=== PATIENT | male | born 1950 | race Caucasian/White ===

== ENCOUNTER 2018-06-26 10:39 | Day surgery (SDC) | payer MEDICARE, OTHER ==
[2018-06-22 13:05] VITALS: BMI 22.0
[2018-06-26 12:13] VITALS: TEMP 97.4
[2018-06-26] MEDS: LACTATED RINGERS 1,000 ML IV SCH ×2 (12:25→12:37)
[2018-06-26] MEDS ORDERED: LIDOCAINE 1% INJ 10MG/ML (20 ML MDV) ONE (12:40)
[2018-06-26] MEDS ORDERED: PROPOFOL 10 MG/ML 20 ML VIAL IV ONE (12:40)
--- NOTE | 2018-06-26 13:18 | P.PCN ---
Date of Procedure: 06/26/18 Procedure(s) Performed: Procedure: Total colonoscopy. Preoperative diagnosis: Rectal bleeding and history of polyps. Postoperative diagnosis: 1. Proctitis. 2. Diverticulosis. 3. Poor preparation with no obvious polyps seen. Preparation: HalfLytely prep. Sedation: Was provided by anesthesia. Brief clinical history: The patient is 68-year-old male who is scheduled for this evaluation because of history of polyps and intermittent rectal bleeding. The patient has history of prostate cancer treated in 2014. Procedure: With the patient on his left lateral decubitus position and after informed consent and adequate sedation, the perianal area was inspected and it did not show any fissures or fistulas. There were no masses felt on digital rectal examination. The Olympus CFH 190L video colonoscope was then inserted in the rectum in the usual fashion and advanced to the cecum. Unfortunately, the preparation was extremely poor and it did not improve as I was advancing the endoscope. I cleansed the bowel upon withdrawing the endoscope. No obvious polyps or tumors were seen. Multiple diverticular orifices were seen scattered mostly on the left side with no evidence of acute diverticulitis or strictures. There was evidence of proctitis first noted upon inserting the endoscope and was more evident with bleeding upon withdrawing the endoscope. There was bleeding telangiectatic vessels and areas of submucosal hemorrhoids in the distal rectum raising the possibility of prior radiation. I did not use argon plasma coagulation at this time because of the extremely poor preparation. The patient tolerated the procedure well. Plan: I summarized the findings to the patient. Discussed dietary measures. I would consider a repeat examination after more thorough preparation for therapeutic treatment if the bleeding continues or recurs. I will keep you updated on his progress.
[2018-06-26 13:36] VITALS: BP 164/82; PULSE 75; RESP 18
== END 2018-06-26 14:29 | disposition home or self-care (01) ==
LOC: ORWHC2ENDO 10:39
DX: K62.89 Other specified diseases of anus and rectum (principal); K57.30 Diverticulosis of large intestine without perforation or abscess without bleeding; Z86.010 Personal history of colon polyps; Z85.46 Personal history of malignant neoplasm of prostate; N40.0 Benign prostatic hyperplasia without lower urinary tract symptoms; K21.9 Gastro-esophageal reflux disease without esophagitis; I10 Essential (primary) hypertension; E78.5 Hyperlipidemia, unspecified; G47.33 Obstructive sleep apnea (adult) (pediatric); E07.9 Disorder of thyroid, unspecified; J44.9 Chronic obstructive pulmonary disease, unspecified; Z79.890 Hormone replacement therapy; Z79.899 Other long term (current) drug therapy
CPT/HCPCS: 45378; J2001; J2704

== ENCOUNTER → 2020-08-26 | Outpatient (CLI) | payer MEDICARE, OTHER ==
[2020-08-26 10:14] LABS: HCT 38.5 % (39.0-53.0); HGB 13.2 gm/dL (13.0-17.5); MCH 32.3 pg (25.0-35.0); MCHC 34.3 g/dL (31.0-37.0); MCV 94.2 fL (80.0-100.0); Mean Platelet Volume 7.5; Platelet Count 191 k/uL (150-450); RBC 4.09 m/uL (4.30-5.90); RDW 13.5 % (11.5-15.5); WBC 6.5 k/uL (3.8-10.6)
[2020-08-26 10:22] LABS: African American GFR (CKD) >90 (>60 ml/min/1.73 sqM); Anion Gap 5 mmol/L; Blood Urea Nitrogen 22 mg/dL (9-20); Carbon Dioxide 30 mmol/L (22-30); Chloride 103 mmol/L (98-107); Non-African American GFR(CKD) >90 (>60 ml/min/1.73 sqM); Potassium 4.6 mmol/L (3.5-5.1); Sodium 138 mmol/L (137-145)
== END | disposition home or self-care (01) ==
LOC: LABWHC1 09:14
PROVIDERS: ATTEND Internal Medicine Interventional Cardiology
DX: Z01.818 Encounter for other preprocedural examination (principal); R94.39 Abnormal result of other cardiovascular function study
CPT/HCPCS: 36415; 80051; 82565; 84520; 85027

== ENCOUNTER → 2020-09-18 | Day surgery (SDC) | payer MEDICARE, OTHER ==
[2020-09-04 15:11] VITALS: BMI 21.4
[~2020-09-18] MED LIST: ALPRAZolam 0.25 MG TAB PO PRN; ALPRAZolam 0.5 MG TAB PO PRN; ASPIRIN 325 MG TAB PO STA; ATORVASTATIN 80 MG TAB PO STA; HEPARIN SODIUM 1,000 UN/ML (10ML VL) ONE; HEPARIN SODIUM,PORCINE 10,000 UNIT in SODIUM CHLORIDE 0.9% 1,000 ML IRRIGATION PRN; HEPARIN SODIUM,PORCINE 2,500 UNIT in SODIUM CHLORIDE 0.9% 250 ML IRRIGATION PRN; IOPAMIDOL-370 125ML BTL INJ ONE; LIDOCAINE 1% INJ 10MG/ML (20 ML MDV) ONE; LIDOCAINE 1% INJ 10MG/ML (20 ML MDV) SQ ONE; MIDAZOLAM 2 MG/2 ML VIAL IV ONE; NITROGLYCERIN SL TABS 0.4 MG TAB SUBLINGUAL PRN; RX INFO: IV CONTRAST WAS GIVEN 1 EACH MISC MISCELLANE PRN; SODIUM CHLORIDE 0.9% 1,000 ML IV SCH; SODIUM CHLORIDE 0.9% 1,000 ML in EMPTY BAG 1 BAG IV ONE; VERAPAMIL 2.5 MG/ML 2 ML AMP ONE; VERAPAMIL SYRINGE (5 MG/10 ML) INTRAARTER ONE
[2020-09-18 07:07] VITALS: RESP 18; TEMP 98.9
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
[2020-09-18 12:26] VITALS: BP 121/67; PULSE 73
== END ==
LOC: CATHCVL 06:24
PROVIDERS: ATTEND Internal Medicine Interventional Cardiology
DX: I25.10 Atherosclerotic heart disease of native coronary artery without angina pectoris (principal); I10 Essential (primary) hypertension; I47.2 Ventricular tachycardia; E78.00 Pure hypercholesterolemia, unspecified; R55 Syncope and collapse; Z82.49 Family history of ischemic heart disease and other diseases of the circulatory system; Z72.0 Tobacco use; R94.39 Abnormal result of other cardiovascular function study; Z79.82 Long term (current) use of aspirin; Z79.890 Hormone replacement therapy; Z79.899 Other long term (current) drug therapy
CPT/HCPCS: 93458; C1769; C1894; J2250; J2001; J1644; Q9967

== ENCOUNTER 2022-02-22 11:51 | Emergency (ER) | payer MEDICARE, OTHER ==
[2022-02-22 12:00] VITALS: RESP 18
[2022-02-22 12:04] VITALS: TEMP 97.5
[2022-02-22 12:07] LABS: Glucose,Whole Blood 94 mg/dL (70-110)
--- NOTE | 2022-02-22 12:52 | XR ---
EXAMINATION TYPE: XR chest 2V DATE OF EXAM: 02/22/2022 COMPARISON: NONE HISTORY: Shortness of breath TECHNIQUE: Frontal and lateral views of the chest are obtained. FINDINGS: Scattered senescent parenchymal changes noted. Hyperinflation compatible with COPD. No evidence for infiltrate. No evidence for atelectasis. Heart size is stable. Mediastinal structures are stable and grossly unremarkable. No evidence for hilar prominence. Degenerative changes dorsal spine. IMPRESSION: 1. No evidence for acute pulmonary disease.
[2022-02-22 13:02] LABS: Basophils % (A) 1 %; Eosinophils # (A) 0.1 k/uL (0-0.7); Eosinophils % (A) 2 %; HCT 40.9 % (39.0-53.0); HGB 13.5 gm/dL (13.0-17.5); Lymphocytes # (A) 0.7 k/uL (1.0-4.8); Lymphocytes % (A) 9 %; MCH 32.2 pg (25.0-35.0); MCV 97.5 fL (80.0-100.0); Mean Platelet Volume 9.1; Monocytes # (A) 0.3 k/uL (0-1.0); Monocytes % (A) 4 %; Neutrophils # (A) 6.5 k/uL (1.3-7.7); Neutrophils % (A) 84 %; Platelet Count 205 k/uL (150-450); RBC 4.19 m/uL (4.30-5.90); RDW 14.9 % (11.5-15.5); WBC 7.7 k/uL (3.8-10.6)
--- NOTE | 2022-02-22 13:11 | ED ---
General Adult HPI - General Chief complaint: Weakness Stated complaint: syncope, weakness Time Seen by Provider: 02/22/22 12:11 Source: patient, EMS, RN notes reviewed, old records reviewed Mode of arrival: EMS Limitations: no limitations - History of Present Illness Initial comments: 72-year-old male presenting with a slip and fall. Patient states she was walking out to his car, he slipped on a piece of plastic and fell without injury. No head or neck trauma. Denies pain complaints from the fall but states afterwards he felt somewhat dizzy. He denies any preceding dizziness. No palpitations, no chest pain. He has had syncopal episode in the past. Denies focal numbness or weakness. Denies any pain complaints from the fall. - Related Data Home Medications Medication Instructions Recorded Confirmed Omeprazole [PriLOSEC] 40 mg PO BID 06/22/18 09/18/20 Simvastatin [Zocor] 40 mg PO HS 06/22/18 09/18/20 Tamsulosin HCl [Flomax] 0.4 mg PO DAILY 06/22/18 09/18/20 Umeclidinium Brm/Vilanterol Tr 1 puff INHALATION DAILY 06/22/18 09/18/20 [Anoro Ellipta 62.5-25 Mcg INH] Aspirin [Adult Low Dose Aspirin EC] 81 mg PO DAILY 09/04/20 09/18/20 Calcium Carbonate/Vitamin D3 1 each PO DAILY 09/04/20 09/18/20 [Calcium 600 mg-Vit D3 5 mcg (200 unit)] Desvenlafaxine Succinate [Pristiq] 100 mg PO DAILY 09/04/20 09/18/20 Levothyroxine Sodium [Synthroid] 112 mcg PO DAILY 09/04/20 09/18/20 Lisinopril-Hctz 20-12.5 mg 1 tab PO DAILY 09/04/20 09/18/20 [Zestoretic 20-12.5] Metoprolol Succinate (ER) [Toprol 25 mg PO DAILY 09/04/20 09/18/20 XL] Glycopyrrolate/Formoterol Fum 2 puff INHALATION BID 09/16/20 09/18/20 [Bevespi Aerosphere Inhaler] Naproxen [Naprosyn] 500 mg PO Q12HR PRN 09/18/20 09/18/20 Allergies Allergy/AdvReac Type Severity Reaction Status Date / Time No Known Allergies Allergy Verified 02/22/22 12:00 Review of Systems ROS Statement: Those systems with pertinent positive or pertinent negative responses have been documented in the HPI. ROS Other: All systems not noted in ROS Statement are negative. Past Medical History Past Medical History: Cancer, COPD, GERD/Reflux, Hyperlipidemia, Hypertension, Prostate Disorder, Thyroid Disorder Additional Past Medical History / Comment(s): PROSTATE CA 2015 WITH SURGERY & RADIATION TX., STATES UMBILICAL HERNIA, SEE CARDIOLOGY H & P. History of Any Multi-Drug Resistant Organisms: None Reported Past Surgical History: Hernia Repair, Prostate Surgery Additional Past Surgical History / Comment(s): JORGE CATARACTS., INGUINAL HERNIA, RIGHT HIP FX REPAIR WITH HARDWARE. Past Anesthesia/Blood Transfusion Reactions: No Reported Reaction Past Psychological History: Anxiety, Depression Smoking Status: Current every day smoker Past Alcohol Use History: None Reported Past Drug Use History: None Reported - Past Family History Father Family Medical History: Cancer Sister(s) Family Medical History: Congestive Heart Failure (CHF) Additional Family Medical History / Comment(s): UNSURE, POSSIBLE CANCER Mother Family Medical History: Congestive Heart Failure (CHF) General Exam Limitations: no limitations General appearance: alert, in no apparent distress Head exam: Present: atraumatic, normocephalic Eye exam: Present: normal appearance, PERRL ENT exam: Present: normal exam Neck exam: Present: normal inspection. Absent: tenderness, meningismus Respiratory exam: Present: normal lung sounds bilaterally. Absent: respiratory distress, wheezes Cardiovascular Exam: Present: regular rate, normal rhythm GI/Abdominal exam: Present: soft. Absent: distended, tenderness, guarding Extremities exam: Present: pedal edema Neurological exam: Present: alert, oriented X3, CN II-XII intact. Absent: motor sensory deficit Psychiatric exam: Present: normal affect, normal mood Skin exam: Present: warm, dry, intact. Absent: cyanosis, diaphoretic Course Vital Signs 02/22/22 02/22/22 11:53 12:03 Temperature 97.5 F L Pulse Rate 69 64 Respiratory 18 18 Rate Blood Pressure 129/72 121/74 O2 Sat by Pulse 95 95 Oximetry - Reevaluation(s) Reevaluation #1: 02/22/22 14:12 I did reevaluate the patient, resting comfortably with no further complaints, dizziness improved. No headache. No focal numbness or weakness. No chest pain or abdominal pain. No urinary symptoms. EKG Findings - EKG Comments: EKG Findings:: Sinus rhythm rate of 62, ID interval 196, QRS duration 115 QTC 466. There is questionable ST segment elevation in V1 and V2 no reciprocal change. Medical Decision Making - Medical Decision Making 72-year-old male with an episode of dizziness, and a near fall secondary to a piece of plastic wrap. No injury reported. Patient did complain of some dizziness and generalized weakness. No pain complaints. No headache. No focal numbness or weakness. No fever. No dysuria or hematuria. Laboratory studies are obtained, CBC within normal limits. He has a mild hyponatremia 131. Otherwise normal electrolytes, negative troponin. I did reevaluate the patient resting comfortably. I did discuss the possibility of an observation versus home. Patient prefers home at this time. He states he does have family at home. Return parameters discussed. - Lab Data Result diagrams: 02/22/22 12:25 02/22/22 12:25 Lab Results 02/22/22 02/22/22 02/22/22 Range/Units 11:57 12:25 12:25 WBC 7.7 (3.8-10.6) k/uL RBC 4.19 L (4.30-5.90) m/uL Hgb 13.5 (13.0-17.5) gm/dL Hct 40.9 (39.0-53.0) % MCV 97.5 (80.0-100.0) fL MCH 32.2 (25.0-35.0) pg MCHC 33.0 (31.0-37.0) g/dL RDW 14.9 (11.5-15.5) % Plt Count 205 (150-450) k/uL MPV 9.1 Neutrophils % 84 % Lymphocytes % 9 % Monocytes % 4 % Eosinophils % 2 % Basophils % 1 % Neutrophils # 6.5 (1.3-7.7) k/uL Lymphocytes # 0.7 L (1.0-4.8) k/uL Monocytes # 0.3 (0-1.0) k/uL Eosinophils # 0.1 (0-0.7) k/uL Basophils # 0.0 (0-0.2) k/uL Sodium 131 L (137-145) mmol/L Potassium 3.9 (3.5-5.1) mmol/L Chloride 97 L (98-107) mmol/L Carbon Dioxide 25 (22-30) mmol/L Anion Gap 9 mmol/L BUN 19 (9-20) mg/dL Creatinine 0.96 (0.66-1.25) mg/dL Est GFR (CKD-EPI)AfAm >90 (>60 ml/min/1.73 sqM) Est GFR (CKD-EPI)NonAf 80 (>60 ml/min/1.73 sqM) Glucose 90 (74-99) mg/dL POC Glucose (mg/dL) 94 (70-110) mg/dL POC Glu Training Mgr ID Nika Patel Plasma Lactic Acid Steven (0.7-2.0) mmol/L Calcium 9.5 (8.4-10.2) mg/dL Magnesium 2.0 (1.6-2.3) mg/dL Total Bilirubin 0.8 (0.2-1.3) mg/dL AST 65 H (17-59) U/L ALT 27 (4-49) U/L Alkaline Phosphatase 68 (38-126) U/L Troponin I (0.000-0.034) ng/mL NT-Pro-B Natriuret Pep pg/mL Total Protein 7.9 (6.3-8.2) g/dL Albumin 4.7 (3.5-5.0) g/dL 02/22/22 02/22/22 02/22/22 Range/Units 12:25 12:25 12:25 WBC (3.8-10.6) k/uL RBC (4.30-5.90) m/uL Hgb (13.0-17.5) gm/dL Hct (39.0-53.0) % MCV (80.0-100.0) fL MCH (25.0-35.0) pg MCHC (31.0-37.0) g/dL RDW (11.5-15.5) % Plt Count (150-450) k/uL MPV Neutrophils % % Lymphocytes % % Monocytes % % Eosinophils % % Basophils % % Neutrophils # (1.3-7.7) k/uL Lymphocytes # (1.0-4.8) k/uL Monocytes # (0-1.0) k/uL Eosinophils # (0-0.7) k/uL Basophils # (0-0.2) k/uL Sodium (137-145) mmol/L Potassium (3.5-5.1) mmol/L Chloride (98-107) mmol/L Carbon Dioxide (22-30) mmol/L Anion Gap mmol/L BUN (9-20) mg/dL Creatinine (0.66-1.25) mg/dL Est GFR (CKD-EPI)AfAm (>60 ml/min/1.73 sqM) Est GFR (CKD-EPI)NonAf (>60 ml/min/1.73 sqM) Glucose (74-99) mg/dL POC Glucose (mg/dL) (70-110) mg/dL POC Glu Training Mgr ID Plasma Lactic Acid Steven 1.4 (0.7-2.0) mmol/L Calcium (8.4-10.2) mg/dL Magnesium (1.6-2.3) mg/dL Total Bilirubin (0.2-1.3) mg/dL AST (17-59) U/L ALT (4-49) U/L Alkaline Phosphatase (38-126) U/L Troponin I <0.012 (0.000-0.034) ng/mL NT-Pro-B Natriuret Pep 39 pg/mL Total Protein (6.3-8.2) g/dL Albumin (3.5-5.0) g/dL Disposition Clinical Impression: Generalized weakness, Fall Disposition: HOME SELF-CARE Condition: Fair Instructions (If sedation given, give patient instructions): Weakness (ED) Is patient prescribed a controlled substance at d/c from ED?: No Referrals: John Morris DO [Primary Care Provider] - 1-2 days Time of Disposition: 14:16
[2022-02-22 13:12] LABS: ALT 27 U/L (4-49); African American GFR (CKD) >90 (>60 ml/min/1.73 sqM); Albumin 4.7 g/dL (3.5-5.0); Anion Gap 9 mmol/L; Blood Urea Nitrogen 19 mg/dL (9-20); Calcium 9.5 mg/dL (8.4-10.2); Carbon Dioxide 25 mmol/L (22-30); Chloride 97 mmol/L (98-107); Glucose 90 mg/dL (74-99); Non-African American GFR(CKD) 80 (>60 ml/min/1.73 sqM); Sodium 131 mmol/L (137-145); Total Bilirubin 0.8 mg/dL (0.2-1.3); Total Protein 7.9 g/dL (6.3-8.2)
[2022-02-22 13:14] LABS: Potassium 3.9 mmol/L (3.5-5.1)
[2022-02-22 13:15] LABS: AST 65 U/L (17-59); Alkaline Phosphatase 68 U/L (38-126)
[2022-02-22 15:15] VITALS: BP 126/76; PULSE 63
== END 2022-02-22 15:22 | disposition home or self-care (01) ==
LOC: EC 11:51
DX: R53.1 Weakness (principal); R55 Syncope and collapse; J44.9 Chronic obstructive pulmonary disease, unspecified; F17.200 Nicotine dependence, unspecified, uncomplicated; E78.5 Hyperlipidemia, unspecified; I10 Essential (primary) hypertension; E07.9 Disorder of thyroid, unspecified; K21.9 Gastro-esophageal reflux disease without esophagitis; Z79.899 Other long term (current) drug therapy; Z79.82 Long term (current) use of aspirin; Z79.51 Long term (current) use of inhaled steroids; Z79.890 Hormone replacement therapy
CPT/HCPCS: 36415; 71046; 80053; 83605; 83735; 83880; 84484; 85025; 93005; 99285

== ENCOUNTER → 2022-07-12 | Outpatient (CLI) | payer MEDICARE, OTHER | END | disposition home or self-care (01) | LOC: LABPAT 16:39 | PROVIDERS: ATTEND Orthopaedic Surgery | DX: Z01.812 Encounter for preprocedural laboratory examination (principal); Z22.322 Carrier or suspected carrier of Methicillin resistant Staphylococcus aureus; M17.12 Unilateral primary osteoarthritis, left knee | CPT/HCPCS: 87070 ==

== ENCOUNTER → 2022-07-28 | Outpatient (CLI) | payer MEDICARE, OTHER ==
[2022-07-28 18:09] LABS: Basophils # (A) 0.04 X 10*3/uL (0.00-0.10); Basophils % (A) 0.6 %; Eosinophils # (A) 0.19 X 10*3/uL (0.04-0.35); HCT 35.3 % (39.6-50.0); HGB 11.8 g/dL (13.0-17.0); Immature Grans, Automated 0.3 %; Lymphocytes # (A) 0.84 X 10*3/uL (0.90-5.00); Lymphocytes % (A) 13.3 %; MCH 30.1 pg (27.0-32.0); MCHC 33.4 g/dL (32.0-37.0); MCV 90.1 fL (80.0-97.0); Mean Platelet Volume 10.4 fL (9.5-12.2); Monocytes # (A) 0.41 X 10*3/uL (0.20-1.00); Monocytes % (A) 6.5 %; NRBC Per 100 WBC 0 /100 WBCS (0.0-0.0); Neutrophils # (A) 4.81 X 10*3/uL (1.80-7.70); Neutrophils % (A) 76.3 %; Platelet Count 286 X 10*3/uL (140-440); RBC 3.92 X 10*6/uL (4.40-5.60); WBC 6.31 X 10*3/uL (4.50-10.00)
[2022-07-28 18:34] LABS: Carbon Dioxide 26.7 mmol/L (20.0-27.5); Non-African American GFR(CKD) 88.9 (60.0-200.0); Potassium 4.1 mmol/L (3.5-5.5)
[2022-07-28 19:28] LABS: INR 0.91 (0.90-1.11); Prothrombin Time 10.3 sec (9.9-11.9)
== END | disposition home or self-care (01) ==
LOC: LABPAT 13:42
PROVIDERS: ATTEND Orthopaedic Surgery
DX: Z01.812 Encounter for preprocedural laboratory examination (principal); Z22.322 Carrier or suspected carrier of Methicillin resistant Staphylococcus aureus
CPT/HCPCS: 80051; 82565; 82947; 85025; 85610; 87070; 93005

== ENCOUNTER 2022-08-03 08:06 | Inpatient (IN) | payer MEDICARE, OTHER ==
[2022-08-02 10:29] VITALS: BMI 23.9
--- NOTE | 2022-08-02 14:43 | P.HPOR ---
History of Present Illness H&P Date: 08/02/22 Chief Complaint: Left knee pain The patient is a 72-year-old male who presents with left knee pain for the past several years worsening with the past 6 months. He has pain with prolonged walking and stiffness when sitting. He notes his knee feels unstable. He's tried medications in addition to activity modifications without much relief. He notes daily pain that limits him. Review of Systems As per HPI Past Medical History Past Medical History: Cancer, COPD, GERD/Reflux, Hyperlipidemia, Hypertension, Osteoarthritis (OA), Prostate Disorder, Thyroid Disorder Additional Past Medical History / Comment(s): PROSTATE CA 2015 WITH SURGERY & RADIATION TX., CURRENT ABD HERNIA., HX COVID 6-7 MONTHS AGO-STATES IV [place]. History of Any Multi-Drug Resistant Organisms: None Reported Past Surgical History: Heart Catheterization, Hernia Repair, Prostate Surgery Additional Past Surgical History / Comment(s): CATARACTS., INGUINAL HERNIA, RIGHT HIP FX REPAIR WITH HARDWARE., HEART CATH09/18/20 ([facility]) Past Anesthesia/Blood Transfusion Reactions: No Reported Reaction Past Psychological History: Anxiety, Depression Smoking Status: Current every day smoker, Heavy tobacco smoker Past Alcohol Use History: None Reported Additional Past Alcohol Use History / Comment(s): SMOKES 1 PPD., STARTED SMOKING AGE 18 Past Drug Use History: None Reported - Past Family History Father Family Medical History: Cancer Sister(s) Family Medical History: Congestive Heart Failure (CHF) Additional Family Medical History / Comment(s): UNSURE, POSSIBLE CANCER Mother Family Medical History: Congestive Heart Failure (CHF) Medications and Allergies Home Medications Medication Instructions Recorded Confirmed Type Desvenlafaxine [Pristiq ER] 100 mg PO DAILY 08/02/22 08/02/22 History Furosemide [Lasix] 20 mg PO DAILY 08/02/22 08/02/22 History Ibuprofen [Motrin] 800 mg PO DIRECTED PRN 08/02/22 08/02/22 History Inhalers 1 dose INHALATION DIRECTED 08/02/22 History Levothyroxine Sodium [Synthroid] 150 mcg PO DAILY 08/02/22 08/02/22 History Lisinopril-Hctz 20-12.5 mg 1 tab PO DAILY 08/02/22 08/02/22 History [Zestoretic 20-12.5] Nortriptyline [Pamelor] 25 mg PO DAILY 08/02/22 08/02/22 History Omeprazole 40 mg PO BID 08/02/22 08/02/22 History Potassium Chloride [Klor-Con 8] 8 meq PO DAILY 08/02/22 08/02/22 History Simvastatin [Zocor] 40 mg PO HS 08/02/22 08/02/22 History Tamsulosin [Flomax] 0.4 mg PO DAILY 08/02/22 08/02/22 History Terazosin [Hytrin] 2 mg PO DAILY 08/02/22 08/02/22 History Allergies Allergy/AdvReac Type Severity Reaction Status Date / Time glue for incisions Allergy Unknown Swelling Uncoded 08/02/22 11:01 Physical Examination - Knee left Appearance: effusion Effusion grade: grade 1 Varus alignment in stance: 5 degrees Tenderness with palpation: medial Pain: with flexion ROM: extension: -10 degrees ROM: flexion: 110 degrees Crepitus with motion: Yes Strength: extension: 5/5 Strength: flexion: 5/5 Meniscal tests: medial meniscal tests: positive, medial joint line pain: positive Results The patient is a well-developed well-nourished male approximately 5 foot 1 170 pounds of mesomorphic habitus. HEENT exam is nonfocal, neck is supple. He has painless passive motion of the left hip. Straight leg raise is negative. His distal neurovascular exam appears intact in left lower extremity. - Diagnostic results Knee x-ray: image reviewed (3 views of the left knee obtaining office show severe medial compartment osteoarthrosis with [id number] changes and subchondral sclerosis.) Assessment and Plan Assessment: Left knee severe tricompartmental osteoarthrosis History of COPD Plan: I talked to the patient at length regarding his condition along with treatment options. He is quite limited because of pain related to his osteoarthrosis despite previous conservative measures. After thorough discussion he opted to proceed with surgery. We will plan to proceed with left total knee arthroplasty. Risks and benefits were discussed at length in layman's terms. We will institute DVT prophylaxis postoperatively.
[~2022-08-03 08:06] MED LIST changes: +ACETAMINOPHEN TAB 500 MG TAB PO PRN; -ALPRAZolam 0.25 MG TAB PO PRN; -ALPRAZolam 0.5 MG TAB PO PRN; -ASPIRIN 325 MG TAB PO STA; -ATORVASTATIN 80 MG TAB PO STA; +DEXAMETHASONE SOD PHOSPHATE 4 MG/ML 1 ML VIAL IV ONE; -HEPARIN SODIUM 1,000 UN/ML (10ML VL) ONE; -HEPARIN SODIUM,PORCINE 10,000 UNIT in SODIUM CHLORIDE 0.9% 1,000 ML IRRIGATION PRN; -HEPARIN SODIUM,PORCINE 2,500 UNIT in SODIUM CHLORIDE 0.9% 250 ML IRRIGATION PRN; +HYDROmorphone 0.5 MG/0.5 ML SYRINGE IVP PRN; -IOPAMIDOL-370 125ML BTL INJ ONE; +LIDOCAINE 1% (10MG/ML) FOR IV START INTRADERMA PRN; -LIDOCAINE 1% INJ 10MG/ML (20 ML MDV) ONE; -LIDOCAINE 1% INJ 10MG/ML (20 ML MDV) SQ ONE; +MELOXICAM 7.5 MG TAB PO PRN; -MIDAZOLAM 2 MG/2 ML VIAL IV ONE; -NITROGLYCERIN SL TABS 0.4 MG TAB SUBLINGUAL PRN; +ONDANSETRON 4 MG/2 ML VIAL IVP PRN; -RX INFO: IV CONTRAST WAS GIVEN 1 EACH MISC MISCELLANE PRN; -SODIUM CHLORIDE 0.9% 1,000 ML IV SCH; -SODIUM CHLORIDE 0.9% 1,000 ML in EMPTY BAG 1 BAG IV ONE; +TRANEXAMIC ACID IN NACL,ISO-OS 1,000 MG in SALINE 1 100ML.BAG IVPB PRN; -VERAPAMIL 2.5 MG/ML 2 ML AMP ONE; -VERAPAMIL SYRINGE (5 MG/10 ML) INTRAARTER ONE
[2022-08-03] MEDS: LACTATED RINGERS 1,000 ML IV SCH (09:00)
[2022-08-03] MEDS ORDERED: MIDAZOLAM 2 MG/2 ML VIAL IVP ONE (09:33)
[2022-08-03] MEDS ORDERED: fentaNYL (PF) 50 MCG/1 ML VIAL IVP ONE (09:34)
[2022-08-03] MEDS ORDERED: ROPIVACAINE 0.2%-NS ON-Q PUMP 1,090 MG, EMPTY PAIN BALL 1 EACH MISCELLANE PRN (09:57)
--- NOTE | 2022-08-03 09:59 | P.ANPRN ---
Procedure Note - Anesthesia - Nerve Block Performed Left Adductor Canal Time Out Performed: Yes (:) Date of Procedure: 08/03/22 Procedure Start Time: Procedure Stop Time: Location of Patient: PreOp Indication: Acute Post-Operative Pain, Requested by Surgeon (Dr Aguilera) Sedation Type: Sedate with meaningful contact maintained Preparation: Sterile Prep, Sterile Dressing Position: Supine Catheter: Indwelling Needle Types: Pajunk Needle Gauge: 21 Ultrasound used to visualize needle placement: Yes Ultrasound used to observe medication spread: Yes Injectate: 0.5% Ropivacaine (see comment for volume) (15cc) Blood Aspirated: No Pain Paresthesia on Injection Noted: No Resistance on Injection: Normal Image Stored and Saved: Yes Events: Uneventful and Well Tolerated
--- NOTE | 2022-08-03 10:00 | P.ANPRN ---
Procedure Note - Anesthesia - Nerve Block Performed Left iPack Time Out Performed: Yes Date of Procedure: 08/03/22 Procedure Start Time: 09:41 Procedure Stop Time: 09:46 Location of Patient: PreOp Indication: Acute Post-Operative Pain, Requested by Surgeon (Dr Aguilera) Sedation Type: Sedate with meaningful contact maintained Preparation: Sterile Prep Position: Supine Catheter: None Needle Types: Pajunk Needle Gauge: 21 Ultrasound used to visualize needle placement: Yes Ultrasound used to observe medication spread: Yes Injectate: 0.5% Ropivacaine (see comment for volume) (15cc +5cc PF Normal saline) Blood Aspirated: No Pain Paresthesia on Injection Noted: No Resistance on Injection: Normal Image Stored and Saved: Yes Events: Uneventful and Well Tolerated
[2022-08-03] MEDS ORDERED: ROPIVACAINE 5 MG/ML 30 ML VIAL ONE (10:22)
[2022-08-03] MEDS ORDERED: MIDAZOLAM 2 MG/2 ML VIAL ONE (10:22)
[2022-08-03] MEDS ORDERED: PROPOFOL 10 MG/ML 20 ML VIAL IV ONE (10:22)
[2022-08-03] MEDS ORDERED: fentaNYL (PF) 50 MCG/ML 2 ML AMP ONE (10:22)
[2022-08-03] MEDS ORDERED: TRANEXAMIC ACID IN NACL,ISO-OS 1,000 MG/100 ML BAG ONE (10:22)
[2022-08-03] MEDS ORDERED: SODIUM CHLORIDE 0.9% (PF) 10 ML VIAL ONE (10:22)
[2022-08-03] MEDS ORDERED: ceFAZolin 3,000 MG in SODIUM CHLORIDE 0.9% IRRIGATIO 3,000 ML IRRIGATION ONE (10:53)
[2022-08-03] MEDS ORDERED: LACTATED RINGERS 1,000 ML IV ONE (11:57)
[2022-08-03] MEDS ORDERED: MAGNESIUM HYDROXIDE 2,400 MG/10 ML CUP PO PRN (12:02)
[2022-08-03] MEDS ORDERED: HYDROmorphone 0.5 MG/0.5 ML SYRINGE IVP PRN ×2 (12:02)
[2022-08-03] MEDS ORDERED: NALOXONE 0.4 MG/ML 1 ML VIAL IV PRN (12:02)
[2022-08-03] MEDS ORDERED: HYDROcodone/APAP 5-325MG 1 EACH TAB PO PRN (12:02)
--- NOTE | 2022-08-03 12:20 | P.OP ---
Date of Procedure: 08/03/22 Preoperative Diagnosis: Left knee severe tricompartmental osteoarthrosis Postoperative Diagnosis: Same Procedure(s) Performed: Left total knee arthroplastycementedposterior stabilized Implants: Depuy Attune size 7 cemented femoral component, size 6 cemented tibial component, 9 mm articular surface, 38 mm cemented patellar component. This is a posterior stabilized implant. Anesthesia: regional, spinal Surgeon: Temo Aguilera Medical Affairs Manager #1: Jun Cruz Estimated Blood Loss (ml): 50 Pathology: other (Bone fragments) Condition: stable Disposition: PACU Indications for Procedure: The patient's a 72-year-old male who presents with progressive left knee pain secondary to osteoarthritis despite conservative measures. A discussion of the risks and benefits of operative intervention versus continued conservative measures was made with patient. He opted to proceed with surgery. Operative risks to include infection, neurovascular injury, development of blood clots, fracture, component loosening/failure need for subsequent procedures was discussed. Informed consent was obtained. Operative Findings: As below Description of Procedure: The patient was brought to the operating room, and after induction of spinal anesthesia the left lower extremity was prepped and draped in a normal fashion. The tourniquet was inflated to 270 mm marker. A longitudinal incision extending 3 finger breaths above the superior pole of patella extending to the medial aspect the tibial tubercle was then made. The skin and subcutaneous tissues were divided sharply. Electrocautery was used for hemostasis. A medial parapatellar arthrotomy was performed. The medial soft tissues to include the superficial and deep portions of the medial collateral ligament were elevated subperiosteally. The patella was everted. A portion of the retropatellar fat pad was excised sharply. The anterior cruciate ligament was sacrificed. Blunt retractors were placed. A starting hole was made in the distal femur 1 cm anterior to the posterior cruciate ligament origin. An intramedullary femoral guide was then inserted planning on 5 valgus distal cut with 9 mm distal resection. The cutting block was pinned in place. The distal cut was then made. The posterior referencing sizing guide was utilized. I felt size 7 was most appropriate. 3 of external rotation was built into the system and verified off the trans-epicondylar axis and the posterior condyles. The cutting block was pinned in place. The anterior, posterior, and chamfer cuts then made. Bone fragments were removed. The intercondylar guide was placed and the notch cut was made with a sagittal saw. The bone block was removed in one fragment. The trial component was then placed. There is good anterior to posterior and medial to lateral fit. The distal peg holes were drilled. The trial component was removed. Attention was then paid towards preparing the proximal tibia. An extra medullary guide was utilized in line with the tibial shaft and second metatarsal distally. I planned on 2 mm resection from the medial compartment. The cutting block was pinned in place. The proximal tibial cut was then made. The bone was removed in one fragment. The remnants of the medial and lateral menisci were excised at the capsular junction with electrocautery. The tibia sized most appropriately at size 6. The trial femoral and tibial components were placed along with a 9 mm articular surface. I was able to obtain full flexion and extension with internal and external rotation. After several flexion and extension cycles, the tibial rotation was marked with electrocautery line with the medial one third of the tibial tubercle. Attention was then paid towards preparing the patella. A patella reamer was utilized taking this down to 14 mm of bone stock. A good flush cut was made. The patella sized most appropriately 38 mm. The peg holes were drilled. The trial components placed. I had good patellofemoral tracking with no hands technique. The trial components were then removed. The tibia was prepared in the appropriate rotation with appropriate drill and keel punch. The posterior osteophytes were removed with a curved osteotome. The flexion and extension gaps were checked and felt to be symmetric at 9 mm. A trial components were then removed. The bony surfaces were prepared with pulsatile lavage and dried. The tibial component was then cemented place was fully seated. Excess cement was removed. The femoral component cemented place and was fully seated. Excess cement was removed. The trial 9 mm articular surface was placed and the knee was put in full extension. The patella component was cemented place. After the cement had sufficiently hardened, the knee was again taken through a range of motion. Again I was able to obtain full flexion and extension with varus and valgus stress. The trial 9 mm articular surface was removed and the final one inserted. This was fully seated. Care was taken to avoid any soft tissue interposition. Pulsatile lavage was again utilized. The medial parapatellar arthrotomy was closed with #2 Ethibond suture. The tourniquet was deflated with approximately 60 minutes total tourniquet time. Final hemostasis was obtained with the cautery. There was minimal bleeding therefore a deep drain was not placed. The subcutaneous tissues were reapproximated with interrupted 2-0 Vicryl sutures. The skin was reapproximated with 3-0 subcuticular strata fix suture. Skin tape and adhesive was applied. A sterile dressing was applied. The patient was awoken from sedation and transferred to recovery room in good condition. Blood loss was estimated at 50 mL. No complications were incurred. Sponge and needle counts were correct at the end of the case. Jun SILVA assisted during the major components of this case to include exposure, bone resection, implantation, and closure.
--- NOTE | 2022-08-03 13:15 | XR ---
EXAMINATION TYPE: XR knee limited LT DATE OF EXAM: 08/03/2022 COMPARISON: NONE HISTORY: 72-year-old male evaluation for postoperative abnormality in alignment TECHNIQUE: 2 views FINDINGS: Images show placement of left total knee arthroplasty. Both distal femoral and proximal tibial compon ents of the prosthesis are well seated without periprosthetic fracture. Alignment grossly anatomic. A nterior soft tissue swelling with scattered soft tissue air as well as foci of intra-articular air re lated to recent operation. Anterior midline skin riri. IMPRESSION: Uncomplicated postoperative appearance left total knee arthroplasty.
--- NOTE | 2022-08-03 15:08 | P.CONS ---
History of Present Illness - Reason for Consult Consult date: 08/03/22 Medical management Requesting physician: Temo Aguilera - History of Present Illness History of Presenting Illness: Patient is a very pleasant 72-year-old male with a past medical history of hypertension, hyperlipidemia, hypothyroidism, COPD with continued nicotine dependence, GERD, and prostate surgery status post radiation treatment and prostatectomy. He is currently admitted under orthopedic surgery team status post an elective left total knee arthroplasty secondary to severe tricompartmental osteoarthrosis. We have been consulted for medical management throughout hospitalization. Patient seen and fully evaluated shortly after arrival to room after completion of surgical procedure. Patient initially free from any complaints or concerns. Reports tolerating clear liquids with no episodes of postoperative nausea or vomiting and reports mild to moderate postoperative pain to left knee. Patient denied experiencing any dizziness, lightheadedness, chest pain, palpitations, shortness of breath, or experiencing any numbness/tingling/focal weakness in his extremities. Upon getting up from bed for the first time, patient reported feeling slight dizziness/lighthe adedness. RN and speech pathology assistant on bilateral sides of patient and I was in front of patient talking with him when he suddenly became unresponsive. Pt never fell as staff immediately assisted patient was safely assisted into the chair at bedside. Patient remained unresponsive and was diaphoretic, blood sugar obtained resulting at 149. Vital signs at this time: Blood pressure 70/50, heart rate 94, respiratory rate 14, and SpO2 of 98% on room air. Order placed for 1 L bolus 0.9% normal saline and a STAT EKG. IV fluid hydration initiated and patient slowly began to regain consciousness after approximately 2 minutes of unresponsiveness. Repeat blood pressure status post initiation of IV fluids and regaining consciousness 106/63 with heart rate of 74. Patient now alert and oriented to person, place, time, and situation and free from any complaints. Review of systems: Pertinent positives and negatives as discussed in HPI, a complete review of systems was performed and all other systems are negative. Physical exam: Vital signs reviewed and stable. General: Nontoxic, no distress and appears stated age. Derm: Skin warm and dry, normal coloration for ethnicity. Head: Atraumatic, normocephalic and symmetric. Eyes: EOMs intact, no lid lag, and anicteric sclera Mouth: no lip lesions, mucus membranes moist Cardiovascular: regular rate and rhythm with normal S1S2, no murmur, positive posterior tibial pulses bilaterally, and cap refill < 2 seconds. Lungs: Respirations even, regular, and unlabored on room air. Lungs CTA bilaterally, no rhonchi, no rales, no wheezing, and no accessory muscle usage. Abdominal: soft, nontender to palpation, no guarding, no appreciable organomegaly Ext movement and sensation intact in all 4 extremities. No gross muscle atrophy, no edema, no contractures. Postsurgical dressing/janel wrap in place to left lower extremity with lidocaine pump. Neuro: Speech clear, face symmetrical and CN II-XII grossly intact with no noted focal neuro deficits Psych: Alert and oriented to person, place, time, and situation. Appropriate and pleasant affect. Assessment and Plan of Care: Episode of unresponsiveness/syncopal episode resulting from vasovagal episode. Hypotension -We continue to monitor vital signs closely, will obtain baseline EKG and continue with IV fluid bolus followed by continued maintenance hydration 24 hours. -Telemetry monitoring -CBC and BMP will be completed. -Fall precautions Status post left total knee arthroplasty Severe tricompartmental osteoarthrosis -Management per primary admitting orthopedic surgery team including DVT prophylaxis, pain management, wound/dressing care, weightbearing, and PT/OT. -Patient currently on DVT prophylaxis with Xarelto. Hypertension with episode of postoperative orthostatic hypotension -Orthostatic hypotension and syncopal episode resulting from vasovagal episode, as this was patient's first time standing after surgical procedure and receiving anesthesia. -Monitor vital signs and may resume lisinopril/hydrochlorothiazide and Lasix tomorrow secondary to need for hydration today. Hyperlipidemia -Home medications reviewed and reordered. Patient may continue daily medication regimen with atorvastatin. -Encourage heart healthy diet. Hypothyroidism -Home medications reviewed and reordered. Patient to resume levothyroxine. BPH -Monitor for postoperative urinary retention, home medications reviewed and reordered and patient to resume doxazosin and Flomax. Thank you for allowing us to participate in the care of this pleasant patient. Do not hesitate to contact us with questions. Someone can be reached from the [facility] hospitalist group all hours of the day at [phone] or via [employer]. Yuavl Dunlap NP rendered care for this patient independently, reviewed the findings and plan as documented in the note above. I did not physically speak with or examine the patient on this date. Past Medical History Past Medical History: Cancer, COPD, GERD/Reflux, Hyperlipidemia, Hypertension, Osteoarthritis (OA), Prostate Disorder, Thyroid Disorder Additional Past Medical History / Comment(s): PROSTATE CA 2015 WITH SURGERY & RADIATION TX., CURRENT ABD HERNIA., HX COVID 6-7 MONTHS AGO-STATES IV TX. History of Any Multi-Drug Resistant Organisms: None Reported Past Surgical History: Heart Catheterization, Hernia Repair, Prostate Surgery Additional Past Surgical History / Comment(s): CATARACTS., INGUINAL HERNIA, RIGHT HIP FX REPAIR WITH HARDWARE., HEART CATH09/18/20 ([facility]) Past Anesthesia/Blood Transfusion Reactions: No Reported Reaction Past Psychological History: Anxiety, Depression Smoking Status: Current every day smoker, Heavy tobacco smoker Past Alcohol Use History: None Reported Additional Past Alcohol Use History / Comment(s): SMOKES 1 PPD., STARTED SMOKING AGE 18 Past Drug Use History: None Reported - Past Family History Father Family Medical History: Cancer Sister(s) Family Medical History: Congestive Heart Failure (CHF) Additional Family Medical History / Comment(s): UNSURE, POSSIBLE CANCER Mother Family Medical History: Congestive Heart Failure (CHF) Medications and Allergies Home Medications Medication Instructions Recorded Confirmed Type Desvenlafaxine [Pristiq ER] 100 mg PO DAILY 08/02/22 08/03/22 History Furosemide [Lasix] 20 mg PO DAILY 08/02/22 08/03/22 History Ibuprofen [Motrin] 800 mg PO DIRECTED PRN 08/02/22 08/03/22 History Levothyroxine Sodium [Synthroid] 150 mcg PO DAILY 08/02/22 08/03/22 History Lisinopril-Hctz 20-12.5 mg 1 tab PO DAILY 08/02/22 08/03/22 History [Zestoretic 20-12.5] Nortriptyline [Pamelor] 25 mg PO DAILY 08/02/22 08/03/22 History Omeprazole 40 mg PO BID 08/02/22 08/03/22 History Potassium Chloride [Klor-Con 8] 8 meq PO DAILY 08/02/22 08/03/22 History Simvastatin [Zocor] 40 mg PO HS 08/02/22 08/03/22 History Tamsulosin [Flomax] 0.4 mg PO DAILY 08/02/22 08/03/22 History Terazosin [Hytrin] 2 mg PO DAILY 08/02/22 08/03/22 History Glycopyrrolate/Formoterol Fum 2 inhaler INHALATION BID 08/03/22 08/03/22 History [Bevespi Aerosphere Inhaler] Allergies Allergy/AdvReac Type Severity Reaction Status Date / Time glue for incisions Allergy Unknown Swelling Uncoded 08/03/22 08:31 Physical Exam Vitals: Vital Signs Temp Pulse Resp BP Pulse Ox 08/03/22 14:31 98.6 F 88 18 127/71 96 08/03/22 14:00 74 16 140/62 97 08/03/22 13:30 74 16 147/65 97 08/03/22 13:15 73 16 126/61 100 08/03/22 13:00 81 12 103/56 99 08/03/22 12:45 78 12 106/58 99 08/03/22 12:30 76 12 102/58 99 08/03/22 12:18 97.3 F L 92 12 105/59 93 L 08/03/22 09:50 82 16 109/58 98 08/03/22 08:30 97.8 F 78 16 137/66 98 Intake and Output 08/03/22 08/03/22 08/03/22 06:59 14:59 22:59 Intake Total 1751 Output Total 50 Balance 1701 Intake: IV 1751 Output: Estimated Blood Loss 50 Other: Weight 74 kg
[2022-08-03] MEDS: HYDROcodone/APAP 7.5-325MG 1 EACH TAB PO PRN (15:09)
[2022-08-03] MEDS: TAMSULOSIN 0.4 MG CAP.ER.24H PO SCH (15:56)
[2022-08-03 16:05] LABS: Glucose,Whole Blood 149 mg/dL (70-110)
[2022-08-03] MEDS ORDERED: SODIUM CHLORIDE 0.9% 1,000 ML IV ONE (16:07)
--- NOTE | 2022-08-03 16:39 | P.PN ---
Progress Note - Text Progress Note Date: 08/03/22 Upon getting up from bed for the first time patient reported feeling some dizziness/lightheadedness. RN and associate director of nursing on bilateral sides of patient and I was in front of patient talking with him when he suddenly became unresponsiveness. Pt never fell as staff immediately assisted patient was safely assisted into the chair at bedside. Patient remained unresponsive and was diaphoretic, blood sugar obtained resulting at 149. Vital signs at this time: Blood pressure 70/50, heart rate 94, respiratory rate 14, and SpO2 of 98% on room air. Order placed for 1 L bolus 0.9% normal saline and a STAT EKG. IV fluid hydration initiated and patient slowly began to regain consciousness after approximately 2 minutes of unresponsiveness. Repeat blood pressure status post initiation of IV fluids and regaining consciousness 106/63 with heart rate of 74. Patient now alert and oriented to person, place, time, and situation. Episode of unresponsiveness/syncopal episode resulting from vasovagal episode. Hypotension -We continue to monitor vital signs closely, will obtain baseline EKG and continue with IV fluid hydration and fall precautions at this time. Yuval Dunlap NP rendered care for this patient independently, reviewed the findings and plan as documented in the note above. I did not physically speak with or examine the patient on this date.
[2022-08-03] MEDS: SODIUM CHLORIDE 0.9% 1,000 ML IV SCH (17:18)
[2022-08-03] MEDS: IPRATROPIUM 0.5 MG/2.5 ML NEBU INHALATION SCH (20:57)
[2022-08-03] MEDS: FORMOTEROL FUMARATE 20 MCG/2 ML NEBU INHALATION SCH (20:57)
[2022-08-03] MEDS ORDERED: NON FORMULARY DRUG (Glycopyrrolate/Formoterol Fum [Bevespi Aerosphere Inhaler] 10.7 GM Gm) INHALATION SCH (21:00)
[2022-08-03] MEDS: SENNOSIDES-DOCUSATE SODIUM 1 EACH TAB PO SCH (22:06)
[2022-08-03] MEDS: ATORVASTATIN 20 MG TAB PO SCH (22:06)
[2022-08-03] MEDS: PANTOPRAZOLE 40 MG TABLET PO SCH (22:06)
[2022-08-04] MEDS: SODIUM CHLORIDE 0.9% 1,000 ML IV SCH ×3 (03:59→23:11)
[2022-08-04] MEDS: HYDROcodone/APAP 7.5-325MG 1 EACH TAB PO PRN ×2 (04:40→21:57)
[2022-08-04 06:16] LABS: Glucose,Whole Blood 111 mg/dL (70-110)
[2022-08-04] MEDS: LEVOTHYROXINE 75 MCG TAB PO SCH (06:49)
[2022-08-04] MEDS: LACTATED RINGERS 1,000 ML IV SCH (06:51)
--- NOTE | 2022-08-04 07:11 | P.PN ---
Progress Note - Text The patient is status post left adductor canal catheter placement. The catheter was placed for postoperative pain control, status post total left knee arthroplasty. Ropivacaine 0.2% is infusing at 8 mLs per hour. The patient has no complaints of left lower extremity numbness or weakness. Patient's VAS score is 4-10. Assessment: Patient's adductor canal catheter is in place and working appropriately. Plan: continue infusion and adjust it as needed.
[2022-08-04] MEDS ORDERED: FUROSEMIDE 20 MG TAB PO SCH (09:00)
[2022-08-04] MEDS ORDERED: LISINOPRIL-HCTZ 20-12.5 MG 1 EACH TAB PO SCH (09:00)
[2022-08-04] MEDS ORDERED: DOXAZOSIN 2 MG TAB PO SCH (09:00)
[2022-08-04] MEDS: IPRATROPIUM 0.5 MG/2.5 ML NEBU INHALATION SCH ×4 (09:38→19:48)
[2022-08-04] MEDS: FORMOTEROL FUMARATE 20 MCG/2 ML NEBU INHALATION SCH ×2 (09:38→19:48)
[2022-08-04] MEDS: DESVENLAFAXINE SUCCINATE 50 MG TAB.ER.24H PO SCH (09:51)
[2022-08-04] MEDS: RIVAROXABAN 10 MG TAB PO SCH (09:51)
[2022-08-04] MEDS: NORTRIPTYLINE 25 MG CAP PO SCH (09:51)
[2022-08-04] MEDS: PANTOPRAZOLE 40 MG TABLET PO SCH ×2 (09:51→21:58)
[2022-08-04] MEDS: TAMSULOSIN 0.4 MG CAP.ER.24H PO SCH (09:53)
--- NOTE | 2022-08-04 10:17 | P.PN ---
Subjective Progress Note Date: 08/04/22 Principal diagnosis: left knee osteoarthritis patient stable at this morning. Patient had just work with physical therapy and was able to walk to the bathroom and back to his chair. Patient did have a difficult time bearing weight on the left lower extremity during session with therapy. Patient would like to rehab once discharged from hospital. Patient does not have a walker for home. Patient says he has urinated since surgery yesterday. Patient says he has not had a bowel movement yet, however, he has been passing gas. Patient currently rates his pain as 6/10. Patient denies radiation of pain. Patient denies chest pain, fever, shortness of breath, nausea, vomiting, change in vision, loss of bowel/bladder control. Objective - Vital Signs Vital signs: Vital Signs Temp 100.4 F H 08/04/22 08:00 Pulse 94 08/04/22 09:17 Resp 18 08/04/22 08:00 BP 116/64 08/04/22 09:17 Pulse Ox 96 08/04/22 08:00 FiO2 Intake & Output 08/03/22 08/04/22 08/04/22 18:59 06:59 18:59 Intake Total 1751 Output Total 50 300 Balance 1701 -300 Weight 74 kg Intake: IV 1751 Output: Urine 300 Estimated Blood Loss 50 Other: Voiding Method Toilet Urinal # Voids 2 1 - Labs Labs: Abnormal Lab Results - Last 24 Hours (Table) 08/03/22 08/04/22 Range/Units 16:04 06:15 POC Glucose (mg/dL) 149 H 111 H (70-110) mg/dL Assessment and Plan Assessment: 1. Left knee osteoarthritis - post-op day #1 s/p left total knee arthroplasty Plan: 1. left knee osteoarthritis - patient stable at bedside this morning. Continue to work with PT. Plan for discharge to rehab tmrw. 2. Appreciate medical management 3. Pain management - [place] 4. DVT ppx - xarelto 5. GI ppx - senna in hospital 6. PT/OT - [facility] w/walker 7. Encourage incentive spirometer use 8. Discharge planning - [facility] tmrw Time with Patient: Less than 30
[2022-08-04 10:20] LABS: Basophils # (A) 0.02 X 10*3/uL (0.00-0.10); Basophils % (A) 0.2 %; Eosinophils # (A) 0.02 X 10*3/uL (0.04-0.35); Eosinophils % (A) 0.2 %; HCT 29.6 % (39.6-50.0); Immature Grans, Automated 0.4 %; Lymphocytes # (A) 0.54 X 10*3/uL (0.90-5.00); Lymphocytes % (A) 5.3 %; MCH 30.2 pg (27.0-32.0); MCHC 33.8 g/dL (32.0-37.0); MCV 89.4 fL (80.0-97.0); Mean Platelet Volume 10.4 fL (9.5-12.2); Monocytes % (A) 9.8 %; NRBC Per 100 WBC 0 /100 WBCS (0.0-0.0); Neutrophils # (A) 8.59 X 10*3/uL (1.80-7.70); Neutrophils % (A) 84.1 %; Platelet Count 199 X 10*3/uL (140-440); RBC 3.31 X 10*6/uL (4.40-5.60); RDW 13.8 % (11.5-14.5); WBC 10.21 X 10*3/uL (4.50-10.00)
[2022-08-04 10:24] LABS: African American GFR (CKD) 99.9 (60.0-200.0); Anion Gap 10.1 mmol/L (10.00-18.00); BUN/Creat Ratio 19.67 Ratio (12.00-20.00); Blood Urea Nitrogen 17.7 mg/dL (9.0-27.0); Calcium 8.5 mg/dL (8.7-10.3); Carbon Dioxide 24.9 mmol/L (20.0-27.5); Magnesium 1.8 mg/dL (1.5-2.4); Non-African American GFR(CKD) 86.2 (60.0-200.0); Potassium 3.5 mmol/L (3.5-5.5)
--- NOTE | 2022-08-04 17:08 | P.PN ---
Subjective Progress Note Date: 08/04/22 Hospital course: Patient is a very pleasant 72-year-old male with a past medical history of hypertension, hyperlipidemia, hypothyroidism, COPD with continued nicotine dependence, GERD, and prostate surgery status post radiation treatment and prostatectomy. He is currently admitted under orthopedic surgery team status post an elective left total knee arthroplasty secondary to severe tricompartmental osteoarthrosis. We have been consulted for medical management throughout hospitalization. Patient seen and fully evaluated shortly after arrival to room after completion of surgical procedure. Patient initially free from any complaints or concerns. Reports tolerating clear liquids with no episodes of postoperative nausea or vomiting and reports mild to moderate postoperative pain to left knee. Patient denied experiencing any dizziness, lightheadedness, chest pain, palpitations, shortness of breath, or experiencing any numbness/tingling/focal weakness in his extremities. Upon getting up from bed for the first time, patient reported feeling slight dizziness/lightheadedne ss. RN and human services assistant on bilateral sides of patient and I was in front of patient talking with him when he suddenly became unresponsive. Pt never fell as staff immediately assisted patient was safely assisted into the chair at bedside. Patient remained unresponsive and was diaphoretic, blood sugar obtained resulting at 149. Vital signs at this time: Blood pressure 70/50, heart rate 94, respiratory rate 14, and SpO2 of 98% on room air. Order placed for 1 L bolus 0.9% normal saline and a STAT EKG. IV fluid hydration initiated and patient slowly began to regain consciousness after approximately 2 minutes of unresponsiveness. Repeat blood pressure status post initiation of IV fluids and regaining consciousness 106/63 with heart rate of 74. Patient now alert and oriented to person, place, time, and situation and free from any complaints. 08/04/22: Patient seen and fully evaluated at bedside this morning. RN reports patient with continued orthostatic hypotension and dizziness upon standing. Patient reports he has had episodes like this occasionally in the past but very rarely. Patient is on medications known to cause orthostatic hypotension and we will hold at this time including lisinopril/hydrochlorothiazide, furosemide Flomax, and Terazosin. Orthostatic hypotension likely multifactorial resulting from side effects of known medications in addition to current use of narcotics for postoperative pain control. At this time we will hold these medications in place patient on gentle IV fluid hydration and continue to monitor closely. Echocardiogram to be completed to evaluate LV function. Patient was also noted to have low-grade temp of 100.4 this morning, discussed importance of incentive spirometer use to prevent atelectasis. Morning labs reviewed and stable with WBC count of 10.21, hemoglobin 10.0 and unremarkable BMP. Physical exam: Vital signs reviewed and stable. General: Nontoxic, no distress and appears stated age. Derm: Skin warm and dry, normal coloration for ethnicity. Head: Atraumatic, normocephalic and symmetric. Eyes: EOMs intact, no lid lag, and anicteric sclera Mouth: no lip lesions, mucus membranes moist Cardiovascular: regular rate and rhythm with normal S1S2, no murmur, positive posterior tibial pulses bilaterally, and cap refill < 2 seconds. Lungs: Respirations even, regular, and unlabored on room air. Lungs CTA b ilaterally, no rhonchi, no rales, no wheezing, and no accessory muscle usage. Abdominal: soft, nontender to palpation, no guarding, no appreciable organomegaly Ext movement and sensation intact in all 4 extremities. No gross muscle atrophy, no edema, no contractures. Postsurgical dressing/janel wrap in place to left lower extremity with lidocaine pump. Neuro: Speech clear, face symmetrical and CN II-XII grossly intact with no noted focal neuro deficits Psych: Alert and oriented to person, place, time, and situation. Appropriate and pleasant affect. Assessment and Plan of Care: Episode of unresponsiveness/syncopal episode resulting from orthostatic hypotension Orthostatic hypotension -We will continue with gentle IV fluid hydration. -Patient is on medications known to cause orthostatic hypotension and we will hold at this time including lisinopril/hydrochlorothiazide, furosemide Flomax, and Terazosin. -Orthostatic hypotension likely multifactorial resulting from side effects of kn own medications in addition to current use of narcotics for postoperative pain control. -At this time we will hold these medications in place patient on gentle IV fluid hydration and continue to monitor closely. -Echocardiogram to be completed to evaluate LV function, pending results may consider cardiology consult. -Telemetry monitoring -Fall precautions Status post left total knee arthroplasty Severe tricompartmental osteoarthrosis -Management per primary admitting orthopedic surgery team including DVT prophylaxis, pain management, wound/dressing care, weightbearing, and PT/OT. -Patient currently on DVT prophylaxis with Xarelto. Hypertension with episode of postoperative orthostatic hypotension -Orthostatic hypotension and syncopal episode resulting from vasovagal episode, as this was patient's first time standing after surgical procedure and receiving anesthesia. -Monitor vital signs and may resume lisinopril/hydrochlorothiazide and Lasix tomorrow secondary to need for hydration today. Hyperlipidemia -Home medications reviewed and reordered. Patient may continue daily medication regimen with atorvastatin. -Encourage heart healthy diet. Hypothyroidism -Home medications reviewed and reordered. Patient to resume levothyroxine. BPH -Monitor for postoperative urinary retention, home medications reviewed and reordered and patient to resume doxazosin and Flomax. Thank you for allowing us to participate in the care of this pleasant patient. Do not hesitate to contact us with questions. Someone can be reached from the [facility] hospitalist group all hours of the day at [phone] or via [employer]. Yuval Dunlap NP rendered care for this patient independently, reviewed the findings and plan as documented in the note above. I did not physically speak with or examine the patient on this date. Objective - Vital Signs Vital signs: Vital Signs Temp 100.4 F H 08/04/22 08:00 Pulse 94 08/04/22 09:17 Resp 18 08/04/22 08:00 BP 116/64 08/04/22 09:17 Pulse Ox 96 08/04/22 08:00 FiO2 Intake & Output 08/03/22 08/04/22 08/04/22 18:59 06:59 18:59 Intake Total 1751 Output Total 50 300 Balance 1701 -300 Weight 74 kg Intake: IV 1751 Output: Urine 300 Estimated Blood Loss 50 Other: Voiding Method Toilet Urinal # Voids 2 1 - Labs CBC & Chem 7: 08/04/22 06:40 08/04/22 06:40 Labs: Abnormal Lab Results - Last 24 Hours (Table) 08/03/22 08/04/22 Range/Units 16:04 06:15 POC Glucose (mg/dL) 149 H 111 H (70-110) mg/dL
[2022-08-04] MEDS: ATORVASTATIN 20 MG TAB PO SCH (21:58)
[2022-08-04] MEDS: SENNOSIDES-DOCUSATE SODIUM 1 EACH TAB PO SCH (21:58)
[2022-08-05] MEDS: LEVOTHYROXINE 75 MCG TAB PO SCH (06:02)
[2022-08-05] MEDS: LACTATED RINGERS 1,000 ML IV SCH (07:40)
[2022-08-05] MEDS: DESVENLAFAXINE SUCCINATE 50 MG TAB.ER.24H PO SCH (08:20)
[2022-08-05] MEDS: PANTOPRAZOLE 40 MG TABLET PO SCH ×2 (08:21→20:10)
[2022-08-05] MEDS: SODIUM CHLORIDE 0.9% 1,000 ML IV SCH ×2 (08:21→15:28)
[2022-08-05] MEDS: RIVAROXABAN 10 MG TAB PO SCH (08:21)
[2022-08-05] MEDS: NORTRIPTYLINE 25 MG CAP PO SCH (08:21)
[2022-08-05] MEDS: IPRATROPIUM 0.5 MG/2.5 ML NEBU INHALATION SCH ×4 (08:52→20:48)
[2022-08-05] MEDS: FORMOTEROL FUMARATE 20 MCG/2 ML NEBU INHALATION SCH ×2 (08:54→20:48)
--- NOTE | 2022-08-05 13:27 | P.PN ---
Subjective Progress Note Date: 08/05/22 Principal diagnosis: Status post left total knee arthroplasty Patient is evaluated at bedside today, he is up sitting in bed eating lunch. He did ambulate well with therapy today. He still does require some assistance with ambulation. Pain is better controlled today. He denies any headaches, lightheadedness, chest pain or shortness of breath. Objective - Vital Signs Vital signs: Vital Signs Temp 99.8 F H 08/05/22 07:46 Pulse 66 08/05/22 12:21 Resp 16 08/05/22 07:46 BP 150/75 08/05/22 07:46 Pulse Ox 97 08/05/22 08:52 FiO2 Intake & Output 08/04/22 08/05/22 08/05/22 18:59 06:59 18:59 Output Total 175 Balance -175 Output: Urine 175 Other: Voiding Method Toilet Urinal # Voids 3 2 - Exam Left lower extremity: Incision is clean, dry, and intact. The exofin fusion tape is in good condition. There is minimal soft tissue swelling and ecchymosis surrounding the medial and lateral aspects of the incision. Calf is soft, no tenderness with palpation. Plantar flexion, dorsiflexion, EHL, FHL are intact. Sensory exam to light touch throughout the extremity is intact, dorsal pedis pulses 2+. - Labs CBC & Chem 7: 08/04/22 06:40 08/04/22 06:40 Assessment and Plan Assessment: Postoperative day #2 status post left total knee arthroplasty Plan: Pain control, continue with current medications DVT prophylaxis, continue Xarelto 10 mg daily Wound care instructions were discussed, this including showering instructions Continue daily PT Medical recommendations Discharge planning: Orthopedically patient is stable for discharge, working with case management to determine subacute rehab placement Time with Patient: Less than 30
--- NOTE | 2022-08-05 19:45 | P.PN ---
Subjective Progress Note Date: 08/05/22 Hospital course: Patient is a very pleasant 72-year-old male with a past medical history of hypertension, hyperlipidemia, hypothyroidism, COPD with continued nicotine dependence, GERD, and prostate surgery status post radiation treatment and prostatectomy. He is currently admitted under orthopedic surgery team status post an elective left total knee arthroplasty secondary to severe tricompartmental osteoarthrosis. We have been consulted for medical management throughout hospitalization. Patient seen and fully evaluated shortly after arrival to room after completion of surgical procedure. Patient initially free from any complaints or concerns. Reports tolerating clear liquids with no episodes of postoperative nausea or vomiting and reports mild to moderate postoperative pain to left knee. Patient denied experiencing any dizziness, lightheadedness, chest pain, palpitations, shortness of breath, or experiencing any numbness/tingling/focal weakness in his extremities. Upon getting up from bed for the first time, patient reported feeling slight dizziness/lightheadedne ss. RN and school of nursing director on bilateral sides of patient and I was in front of patient talking with him when he suddenly became unresponsive. Pt never fell as staff immediately assisted patient was safely assisted into the chair at bedside. Patient remained unresponsive and was diaphoretic, blood sugar obtained resulting at 149. Vital signs at this time: Blood pressure 70/50, heart rate 94, respiratory rate 14, and SpO2 of 98% on room air. Order placed for 1 L bolus 0.9% normal saline and a STAT EKG. IV fluid hydration initiated and patient slowly began to regain consciousness after approximately 2 minutes of unresponsiveness. Repeat blood pressure status post initiation of IV fluids and regaining consciousness 106/63 with heart rate of 74. Patient now alert and oriented to person, place, time, and situation and free from any complaints. 08/04/22: Patient seen and fully evaluated at bedside this morning. RN reports patient with continued orthostatic hypotension and dizziness upon standing. Patient reports he has had episodes like this occasionally in the past but very rarely. Patient is on medications known to cause orthostatic hypotension and we will hold at this time including lisinopril/hydrochlorothiazide, furosemide Flomax, and Terazosin. Orthostatic hypotension likely multifactorial resulting from side effects of known medications in addition to current use of narcotics for postoperative pain control. At this time we will hold these medications in place patient on gentle IV fluid hydration and continue to monitor closely. Echocardiogram to be completed to evaluate LV function. Patient was also noted to have low-grade temp of 100.4 this morning, discussed importance of incentive spirometer use to prevent atelectasis. Morning labs reviewed and stable with WBC count of 10.21, hemoglobin 10.0 and unremarkable BMP. 08/05/22: Patient seen and fully evaluated at bedside this morning. Patient reports feeling much much better this morning. He reports no longer experiencing any dizziness upon standing and has been ambulating in room with walker. Patient has had improvement in orthostatic vitals they remain positive but significantly improved. Patient has had no reported difficulties with urinary retention and denies any further complaints at this time. Physical exam: Vital signs reviewed and stable. General: Nontoxic, no distress and appears stated age. Derm: Skin warm and dry, normal coloration for ethnicity. Head: Atraumatic, normocephalic and symmetric. Eyes: EOMs intact, no lid lag, and anicteric sclera Mouth: no lip lesions, mucus membranes moist Cardiovascular: regular rate and rhythm with normal S1S2, no murmur, positive posterior tibial pulses bilaterally, and cap refill < 2 seconds. Lungs: Respirations even, regular, and unlabored on room air. Lungs CTA bilaterally, no rhonchi, no rales, no wheezing, and no accessory muscle usage. Abdominal: soft, nontender to palpation, no guarding, no appreciable organo megaly Ext movement and sensation intact in all 4 extremities. No gross muscle atrophy, no edema, no contractures. Postsurgical dressing/janel wrap in place to left lower extremity with lidocaine pump. Neuro: Speech clear, face symmetrical and CN II-XII grossly intact with no noted focal neuro deficits Psych: Alert and oriented to person, place, time, and situation. Appropriate and pleasant affect. Assessment and Plan of Care: Episode of unresponsiveness/syncopal episode resulting from orthostatic hypotension Orthostatic hypotension, improving -We will continue with gentle IV fluid hydration. -Patient is on medications known to cause orthostatic hypotension and we will hold at this time including lisinopril/hydrochlorothiazide, furosemide Flomax, and Terazosin. -Orthostatic hypotension likely multifactorial resulting from side effects of known medications in addition to current use of narcotics for postoperative pain control. -At this time we will hold these medications in place patient on gentle IV fluid hydration and continue to monitor closely. -Echocardiogram to be completed to evaluate LV function, pending results may consider cardiology consult. -Telemetry monitoring -Fall precautions Status post left total knee arthroplasty Severe tricompartmental osteoarthrosis -Management per primary admitting orthopedic surgery team including DVT prophylaxis, pain management, wound/dressing care, weightbearing, and PT/OT. -Patient currently on DVT prophylaxis with Xarelto. Hypertension with episode of postoperative orthostatic hypotension -Orthostatic hypotension and syncopal episode resulting from vasovagal episode, as this was patient's first time standing after surgical procedure and receiving anesthesia. -Monitor vital signs and may resume lisinopril/hydrochlorothiazide and Lasix tomorrow secondary to need for hydration today. Hyperlipidemia -Home medications reviewed and reordered. Patient may continue daily medication regimen with atorvastatin. -Encourage heart healthy diet. Hypothyroidism -Home medications reviewed and reordered. Patient to resume levothyroxine. BPH -Monitor for postoperative urinary retention, home medications reviewed and re ordered and patient to resume doxazosin and Flomax. Thank you for allowing us to participate in the care of this pleasant patient. Do not hesitate to contact us with questions. Someone can be reached from the [facility] hospitalist group all hours of the day at [phone] or via [employer]. Objective - Vital Signs Vital signs: Vital Signs Temp 99.8 F H 08/05/22 07:46 Pulse 91 08/05/22 07:46 Resp 16 08/05/22 07:46 BP 150/75 08/05/22 07:46 Pulse Ox 97 08/05/22 07:46 FiO2 Intake & Output 08/04/22 08/05/22 08/05/22 18:59 06:59 18:59 Output Total 100 Balance -100 Output: Urine 100 Other: Voiding Method Toilet Urinal # Voids 3 2 - Labs CBC & Chem 7: 08/04/22 06:40 08/04/22 06:40 Labs: Abnormal Lab Results - Last 24 Hours (Table) 08/04/22 08/04/22 Range/Units 06:40 06:40 WBC 10.21 H (4.50-10.00) X 10*3/uL RBC 3.31 L (4.40-5.60) X 10*6/uL Hgb 10.0 L (13.0-17.0) g/dL Hct 29.6 L (39.6-50.0) % Neutrophils # 8.59 H (1.80-7.70) X 10*3/uL Lymphocytes # 0.54 L (0.90-5.00) X 10*3/uL Eosinophils # 0.02 L (0.04-0.35) X 10*3/uL Calcium 8.5 L (8.7-10.3) mg/dL
[2022-08-05] MEDS: ATORVASTATIN 20 MG TAB PO SCH (20:10)
[2022-08-05] MEDS: SENNOSIDES-DOCUSATE SODIUM 1 EACH TAB PO SCH (20:10)
[2022-08-05] MEDS: HYDROcodone/APAP 7.5-325MG 1 EACH TAB PO PRN (20:10)
[2022-08-06] MEDS: SODIUM CHLORIDE 0.9% 1,000 ML IV SCH ×2 (01:00→16:48)
[2022-08-06] MEDS: HYDROcodone/APAP 7.5-325MG 1 EACH TAB PO PRN ×2 (04:34→10:18)
[2022-08-06] MEDS: LACTATED RINGERS 1,000 ML IV SCH (05:44)
[2022-08-06] MEDS: LEVOTHYROXINE 75 MCG TAB PO SCH (06:09)
[2022-08-06] MEDS: IPRATROPIUM 0.5 MG/2.5 ML NEBU INHALATION SCH ×3 (07:19→16:36)
[2022-08-06] MEDS: FORMOTEROL FUMARATE 20 MCG/2 ML NEBU INHALATION SCH (07:20)
--- NOTE | 2022-08-06 09:49 | P.DS ---
Providers Date of admission: 08/05/22 08:02 Expected date of discharge: 08/06/22 Attending physician: Temo Aguilera Consults: 08/03/22 12:05 Consult Physician Routine Consulting Provider: Heavenly Joel Consult Reason/Comments: Medical Management s/p left total knee arthroplasty Do you want consulting provider notified?: Yes [facility] Course: Date of admission: 08/03/2022 Date of discharge:. 08/06/2022 Admission diagnosis: Left knee osteoarthritis Discharge diagnosis: Same Attending physician: Dr. Aguilera Surgical procedures: Left Total knee arthroplasty Brief history: Patient is a 72-year-old male with a history of progressive primary left knee osteoarthritis. At this point patient has failed conservative treatment measures and has opted to proceed with a elective left total knee arthroplasty. Hospital course: Details of patient's surgery can be found in operative report. Patient tolerated the procedure well and was subsequently transported to orthopedic floor. Patient's orthopeidc and medical care was provided daily. Patient had daily laboratory tests performed for evaluation of overall blood counts. Patient had daily physical therapy to include strengthening range of motion as well as education with walker ambulation. Patient was treated with Xarelto for their postoperative DVT prophylaxis during their inpatient stay. Patient was noted to have a relatively uneventful postoperative course. Patient reported satisfactory pain control with oral pain medications by postoperative day 3. Patient showed satisfactory progress with physical therapy. Patient moved steadily through the program and had no difficulty meeting the goals by postoperative day 3. Given patient's otherwise satisfactory course and having met physical therapy goals, plan is to discharge patient to rehab on postoperative day 3. Discharge condition/disposition: Patient will be discharged to rehab in stable condition. Discharge medications: Instructions are given on resumption of patient's normal daily medications per primary care recommendation, in addition patient will be prescribed [place]; Colace; Eliquis 2.5 mg BID x 2 weeks. Discharge instructions: 1. Wound care and infection precautions, keep incision dry and covered while showering, no lotions, creams, moisturizers. No soaking, tubs, pools, hottubs. Do not scrub over the incision. 2. Weight-bear as tolerated with walker / cane until follow-up. 3. Ice and elevate when necessary. Do not exceed 20 minutes per hour with ice pack. 4. Utilize compression sleeve until seen at first follow up appointment. 5. Visiting nursing care. 6. Home physical therapy including home CPM. 7. Pain meds and anticoagulants per prescription. 8. Pain medication has potential to cause constipation. Increase oral fluid and fiber intake. Contact primary care provider if you have not had a bowel movement within 48 hours after discharge 9. No anti-inflammatory medication until discussed at first post operative visit, this including Motrin, Aleve, Mobic, Diclofenac 10. Follow up in office at 2 weeks postop with Art Martinez PA-C / Jun Cruz PA-C 11. Follow up with your primary care doctor 7-10 days after discharge. 12. Contact [facility] with any questions, . Keep incision clean, dry, intact. While showering, cover incision with Saran wrap. Follow up in office in 2 weeks. Assessment: Left knee osteoarthritis Procedures: Left total knee arthroplasty Patient Condition at Discharge: Good Plan - Discharge Summary Discharge Rx Participant: Yes New Discharge Prescriptions: New HYDROcodone/APAP 7.5-325MG [[place] 7.5] 1 each PO Q6HR PRN #28 tab PRN Reason: Pain Docusate [Colace] 100 mg PO DAILY #30 capsule Apixaban [Eliquis] 2.5 mg PO BID #60 tab No Action Lisinopril-Hctz 20-12.5 mg [Zestoretic 20-12.5] 1 tab PO DAILY Furosemide [Lasix] 20 mg PO DAILY Omeprazole 40 mg PO BID Desvenlafaxine [Pristiq ER] 100 mg PO DAILY Simvastatin [Zocor] 40 mg PO HS Potassium Chloride [Klor-Con 8] 8 meq PO DAILY Levothyroxine Sodium [Synthroid] 150 mcg PO DAILY Tamsulosin [Flomax] 0.4 mg PO DAILY Nortriptyline [Pamelor] 25 mg PO DAILY Terazosin [Hytrin] 2 mg PO DAILY Ibuprofen [Motrin] 800 mg PO DIRECTED PRN PRN Reason: Pain Glycopyrrolate/Formoterol Fum [Bevespi Aerosphere Inhaler] 2 inhaler IN HALATION BID Discharge Medication List Desvenlafaxine [Pristiq ER] 100 mg PO DAILY 08/02/22 [History] Furosemide [Lasix] 20 mg PO DAILY 08/02/22 [History] Ibuprofen [Motrin] 800 mg PO DIRECTED PRN 08/02/22 [History] Levothyroxine Sodium [Synthroid] 150 mcg PO DAILY 08/02/22 [History] Lisinopril-Hctz 20-12.5 mg [Zestoretic 20-12.5] 1 tab PO DAILY 08/02/22 [History] Nortriptyline [Pamelor] 25 mg PO DAILY 08/02/22 [History] Omeprazole 40 mg PO BID 08/02/22 [History] Potassium Chloride [Klor-Con 8] 8 meq PO DAILY 08/02/22 [History] Simvastatin [Zocor] 40 mg PO HS 08/02/22 [History] Tamsulosin [Flomax] 0.4 mg PO DAILY 08/02/22 [History] Terazosin [Hytrin] 2 mg PO DAILY 08/02/22 [History] Glycopyrrolate/Formoterol Fum [Bevespi Aerosphere Inhaler] 2 inhaler INHALATION BID 08/03/22 [History] Apixaban [Eliquis] 2.5 mg PO BID #60 tab 08/06/22 [Rx] Docusate [Colace] 100 mg PO DAILY #30 capsule 08/06/22 [Rx] HYDROcodone/APAP 7.5-325MG [[place] 7.5] 1 each PO Q6HR PRN #28 tab 08/06/22 [Rx] Follow up Appointment(s)/Referral(s): Jun Cruz, MATILDE [PHYSICIAN CLOTH CUTTING MACHINE OPERATOR] - 2 Weeks [facility], [NON-STAFF] - As Needed Patient Instructions/Handouts: Knee Replacement (DC) Activity/Diet/Wound Care/Special Instructions: Orthopedic Discharge Instructions: 1. Wound care and infection precautions, keep incision dry and covered while showering, no lotions, creams, moisturizers. No soaking, pools, hot tubs. Do not scrub over incision. 2. Weight-bear as tolerated with walker / cane until follow-up. 3. Ice and elevate when necessary. Do not exceed 20 minutes per hour with ice pack. 4. Utilize compression sleeve until seen at first follow up appointment. 5. Pain meds and anticoagulants per prescription. 6. Pain medication has potential to cause constipation. Increase oral fluid and fiber intake. Contact primary care provider if you have not had a bowel movement within 48 hours after discharge. 7. No anti-inflammatory medication until discussed at first post operative visit, this including Motrin, Aleve, Mobic, Diclofenac. 8. Follow up in office at 2 weeks postop with Art Martinez PA-C / Jun Cruz PA-C 9. Follow up with your primary care doctor 7-10 days after discharge. 10. Contact [facility] with any questions, . Keep incision clean, dry, intact. While showering, cover incision with Saran wrap.. Discharge Disposition: TRANSFER TO SNF/ECF
[2022-08-06] MEDS: RIVAROXABAN 10 MG TAB PO SCH (10:03)
[2022-08-06] MEDS: NORTRIPTYLINE 25 MG CAP PO SCH (10:04)
[2022-08-06] MEDS: PANTOPRAZOLE 40 MG TABLET PO SCH (10:04)
[2022-08-06] MEDS: DESVENLAFAXINE SUCCINATE 50 MG TAB.ER.24H PO SCH (10:04)
--- NOTE | 2022-08-06 10:33 | P.PN ---
Subjective Progress Note Date: 08/06/22 Principal diagnosis: left knee osteoarthritis patient stable at bedside this morning. Patient says he has been working with physical therapy daily and is looking forward to going to rehab today. Patient says he has urinated several times since surgery. Patient currently rates his pain as 6/10. Patient denies radiation of pain. Patient denies chest pain, fever, shortness of breath, nausea, vomiting, change in vision, loss of bowel/bladder control. Objective - Vital Signs Vital signs: Vital Signs Temp 98.8 F 08/06/22 08:00 Pulse 80 08/06/22 08:00 Resp 16 08/06/22 08:00 BP 146/72 08/06/22 08:00 Pulse Ox 94 L 08/06/22 08:00 FiO2 Intake & Output 08/05/22 08/06/22 08/06/22 18:59 06:59 18:59 Intake Total 1080 Output Total 575 450 Balance 505 -450 Intake: Oral 1080 Output: Urine 575 450 Other: Voiding Method Toilet Urinal - Exam Left knee: Incision is clean, dry, and intact. The riri are in good condition. There is minimal soft tissue swelling and ecchymosis surrounding the medial and lateral aspects of the incision. Calf is soft, no tenderness with palpation. Plantar flexion, dorsiflexion, EHL, FHL are intact. Sensory exam to light touch throughout the extremity is intact, dorsal pedis pulses 2+. - Labs CBC & Chem 7: 08/04/22 06:40 08/04/22 06:40 Assessment and Plan Assessment: 1. Left knee osteoarthritis - post-op day #3 s/p left total knee arthroplasty Plan: 1. left knee osteoarthritis - patient stable at bedside this morning. Continue to work with PT. discharged to rehab today 2. Appreciate medical management 3. Pain management - Dexter 4. DVT ppx - xarelto; Eliquis 2.5 mg BID x 2 weeks 5. GI ppx - senna in hospital; Colace at rehab 6. PT/OT - WBAT w/walker 7. Encourage incentive spirometer use 8. Discharge planning - discharge to rehab today Time with Patient: Less than 30
[2022-08-06 10:43] LABS: Basophils # (A) 0.04 X 10*3/uL (0.00-0.10); Basophils % (A) 0.4 %; HCT 26.4 % (39.6-50.0); HGB 8.6 g/dL (13.0-17.0); Immature Grans, Automated 0.3 %; Lymphocytes # (A) 0.37 X 10*3/uL (0.90-5.00); Lymphocytes % (A) 3.8 %; MCH 29.8 pg (27.0-32.0); MCHC 32.6 g/dL (32.0-37.0); MCV 91.3 fL (80.0-97.0); Mean Platelet Volume 10.6 fL (9.5-12.2); Monocytes # (A) 0.72 X 10*3/uL (0.20-1.00); Monocytes % (A) 7.5 %; NRBC Per 100 WBC 0 /100 WBCS (0.0-0.0); Platelet Count 171 X 10*3/uL (140-440); RBC 2.89 X 10*6/uL (4.40-5.60); RDW 13.6 % (11.5-14.5); WBC 9.66 X 10*3/uL (4.50-10.00)
--- NOTE | 2022-08-06 12:31 | CA ---
Transthoracic Echo Report Name: Jb Barreto Age: 72 Gender: M : 1950 Exam Date: 08/06/2022 09:28 Exam Location: [facility] Ht (in): 60 Wt (lb): 163 Ordering Physician: Yuval Dunlap Attending/Referring Phys: Investigations Consultant Nighat Michel RDCS Procedure CPT: Indications: persistent orthostatic hypotensio eval LV function Cardiac Hx: Technical Quality: Contrast 1: Total Dose (mL): Contrast 2: Total Dose (mL): MEASUREMENTS (Male / Female) Normal Values 2D ECHO LV Diastolic Diameter PLAX 4.7 cm 4.2 - 5.9 / 3.9 - 5.3 cm LV Systolic Diameter PLAX 3.5 cm IVS Diastolic Thickness 1.1 cm 0.6 - 1.0 / 0.6 - 0.9 cm LVPW Diastolic Thickness 1.6 cm 0.6 - 1.0 / 0.6 - 0.9 cm LV Relative Wall Thickness 0.6 RV Internal Dim ED PLAX 2.7 cm LA Systolic Diameter LX 3.4 cm 3.0 - 4.0 / 2.7 - 3.8 cm LA Volume 57.2 cm??? 18 - 58 / 22 - 52 cm??? M-MODE Aortic Root Diameter MM 3.2 cm LA Systolic Diameter MM 3.2 cm LA Ao Ratio MM 1.0 AV Cusp Separation MM 1.8 cm DOPPLER AV Peak Velocity 212.8 cm/s AV Peak Gradient 18.1 mmHg AV Mean Velocity 154.9 cm/s AV Mean Gradient 10.7 mmHg AV Velocity Time Integral 40.7 cm AI Peak Velocity 437.0 cm/s AI Peak Gradient 76.4 mmHg AI Pressure Half Time 417.4 ms LVOT Peak Velocity 126.4 cm/s LVOT Peak Gradient 6.4 mmHg MV Area PHT 3.2 cm??? Mitral E Point Velocity 70.2 cm/s Mitral A Point Velocity 91.5 cm/s Mitral E to A Ratio 0.8 MV Deceleration Time 239.2 ms MV E' Velocity 7.3 cm/s Mitral E to MV E' Ratio 9.7 TR Peak Velocity 229.5 cm/s TR Peak Gradient 21.1 mmHg Right Ventricular Systolic Press 26.1 mmHg FINDINGS Left Ventricle Mildly increased septal wall thickness. Left ventricular cavity size normal. Left ventricular ejection fraction is estimated at 55-60%. Right Ventricle Normal right ventricular size and function. Right ventricular systolic pressure within normal limits. Right Atrium Normal right atrial size. Left Atrium Normal left atrial size. Mitral Valve Structurally normal mitral valve. Mild mitral regurgitation. Aortic Valve Mild aortic stenosis with a peak gradient of 18 mmHg and a mean gradient of 11 mmHg. Mild to moderate aortic regurgitation. Tricuspid Valve Structurally normal tricuspid valve. Mild tricuspid regurgitation. Pulmonic Valve Pulmonic valve not well visualized. Pericardium Normal pericardium. Aorta Normal size aortic root and proximal ascending aorta. CONCLUSIONS 1. Normal left ventricle size and systolic function 2. Mild mitral and tricuspid regurgitation 3. Mild to moderate aortic regurgitation Previewed by: Dr. Lionel Monroe MD (Electronically Signed) Final Date: 06 August 2022 12:30
--- NOTE | 2022-08-06 13:09 | P.PN ---
Subjective Progress Note Date: 08/06/22 Hospital course: Patient is a very pleasant 72-year-old male with a past medical history of hypertension, hyperlipidemia, hypothyroidism, COPD with continued nicotine dependence, GERD, and prostate surgery status post radiation treatment and prostatectomy. He is currently admitted under orthopedic surgery team status post an elective left total knee arthroplasty secondary to severe tricompartmental osteoarthrosis. We have been consulted for medical management throughout hospitalization. Patient seen and fully evaluated shortly after arrival to room after completion of surgical procedure. Patient initially free from any complaints or concerns. Reports tolerating clear liquids with no episodes of postoperative nausea or vomiting and reports mild to moderate postoperative pain to left knee. Patient denied experiencing any dizziness, lightheadedness, chest pain, palpitations, shortness of breath, or experiencing any numbness/tingling/focal weakness in his extremities. Upon getting up from bed for the first time, patient reported feeling slight dizziness/lightheadedne ss. RN and nursing unit clerk on bilateral sides of patient and I was in front of patient talking with him when he suddenly became unresponsive. Pt never fell as staff immediately assisted patient was safely assisted into the chair at bedside. Patient remained unresponsive and was diaphoretic, blood sugar obtained resulting at 149. Vital signs at this time: Blood pressure 70/50, heart rate 94, respiratory rate 14, and SpO2 of 98% on room air. Order placed for 1 L bolus 0.9% normal saline and a STAT EKG. IV fluid hydration initiated and patient slowly began to regain consciousness after approximately 2 minutes of unresponsiveness. Repeat blood pressure status post initiation of IV fluids and regaining consciousness 106/63 with heart rate of 74. Patient now alert and oriented to person, place, time, and situation and free from any complaints. 08/04/22: Patient seen and fully evaluated at bedside this morning. RN reports patient with continued orthostatic hypotension and dizziness upon standing. Patient reports he has had episodes like this occasionally in the past but very rarely. Patient is on medications known to cause orthostatic hypotension and we will hold at this time including lisinopril/hydrochlorothiazide, furosemide Flomax, and Terazosin. Orthostatic hypotension likely multifactorial resulting from side effects of known medications in addition to current use of narcotics for postoperative pain control. At this time we will hold these medications in place patient on gentle IV fluid hydration and continue to monitor closely. Echocardiogram to be completed to evaluate LV function. Patient was also noted to have low-grade temp of 100.4 this morning, discussed importance of incentive spirometer use to prevent atelectasis. Morning labs reviewed and stable with WBC count of 10.21, hemoglobin 10.0 and unremarkable BMP. 08/05/22: Patient seen and fully evaluated at bedside this morning. Patient reports feeling much much better this morning. He reports no longer experiencing any dizziness upon standing and has been ambulating in room with walker. Patient has had improvement in orthostatic vitals they remain positive but significantly improved. Patient has had no reported difficulties with urinary retention and denies any further complaints at this time. 08/06/22. Patient seen and fully evaluated at the bedside this morning. Patient denies having any further episodes of dizziness/lightheadedness and orthostatic hypotension appears to have resolved with pressure of 96/61 while sitting and 96/57 upon standing. Patient reports urinating without any difficulties since discontinuation of Lasix, Flomax and doxazosin. Informed patient that while he remains on pain medications for postoperative pain it is advisable that he continue to hold these medications as long as he is urinating without any difficulties and does not have any difficulties initiating a stream or experiencing any retention. Patient verbalized understanding and stated he will follow-up with his PCP for further management of these medications. Physical exam: Vital signs reviewed and stable. General: Nontoxic, no distress and appears stated age. Derm: Skin warm and dry, normal coloration for ethnicity. Head: Atraumatic, normocephalic and symmetric. Eyes: EOMs intact, no lid lag, and anicteric sclera Mouth: no lip lesions, mucus membranes moist Cardiovascular: regular rate and rhythm with normal S1S2, no murmur, positive posterior tibial pulses bilaterally, and cap refill < 2 seconds. Lungs: Respirations even, regular, and unlabored on room air. Lungs CTA bilaterally, no rhonchi, no rales, no wheezing, and no accessory muscle usage. Abdominal: soft, nontender to palpation, no guarding, no appreciable organomegaly Ext movement and sensation intact in all 4 extremities. No gross muscle atrophy, no edema, no contractures. Postsurgical dressing/janel wrap in place to left lower extremity with lidocaine pump. Neuro: Speech clear, face symmetrical and CN II-XII grossly intact with no noted focal neuro deficits Psych: Alert and oriented to person, place, time, and situation. Appropriate and pleasant affect. Assessment and Plan of Care: Episode of unresponsiveness/syncopal episode resulting from orthostatic hypotension Orthostatic hypotension, improving -We will continue with gentle IV fluid hydration. -Patient is on medications known to cause orthostatic hypotension and we will hold at this time including lisinopril/hydrochlorothiazide, furosemide Flomax, and Terazosin. -Orthostatic hypotension likely multifactorial resulting from side effects of known medications in addition to current use of narcotics for postoperative pain control. -At this time we will hold these medications in place patient on gentle IV fluid hydration and continue to monitor closely. -Echocardiogram to be completed to evaluate LV function, pending results may consider cardiology consult. -Telemetry monitoring -Fall precautions Acute postoperative blood loss anemia, greater than expected -Hemoglobin stable this morning at 8.6. Patient has had no episodes of bleeding. No needs for transfusion at this time. Status post left total knee arthroplasty Severe tricompartmental osteoarthrosis -Management per primary admitting orthopedic surgery team including DVT prophylaxis, pain management, wound/dressing care, weightbearing, and PT/OT. -Patient currently on DVT prophylaxis with Xarelto. Hypertension with episode of postoperative orthostatic hypotension -Orthostatic hypotension and syncopal episode resulting from vasovagal episode, as this was patient's first time standing after surgical procedure and receiving anesthesia. -Monitor vital signs and may resume lisinopril/hydrochlorothiazide and Lasix tomorrow secondary to need for hydration today. Hyperlipidemia -Home medications reviewed and reordered. Patient may continue daily medication regimen with atorvastatin. -Encourage heart healthy diet. Hypothyroidism -Home medications reviewed and reordered. Patient to resume levothyroxine. BPH -Monitor for postoperative urinary retention, home medications reviewed and doxazosin and Flomax held secondary to severe orthostatic hypotension resulting in syncopal episode. Thank you for allowing us to participate in the care of this pleasant patient. Do not hesitate to contact us with questions. Someone can be reached from the [facility] hospitalist group all hours of the day at [phone] or via [employer]. Objective - Vital Signs Vital signs: Vital Signs Temp 98.8 F 08/06/22 08:00 Pulse 80 08/06/22 08:00 Resp 16 08/06/22 08:00 BP 146/72 08/06/22 08:00 Pulse Ox 94 L 12/30/22 08:00 FiO2 Intake & Output 08/05/22 08/06/22 08/06/22 18:59 06:59 18:59 Intake Total 1080 Output Total 575 450 Balance 505 -450 Intake: Oral 1080 Output: Urine 575 450 Other: Voiding Method Toilet Urinal - Labs CBC & Chem 7: 08/06/22 06:33 08/04/22 06:40
[2022-08-06] MEDS ORDERED: MAGNESIUM OXIDE 400 MG TAB PO STA (13:10)
[2022-08-06 14:17] VITALS: BP 143/76; RESP 18; TEMP 98.7
[2022-08-06 16:40] VITALS: PULSE 72
== END 2022-08-06 16:55 | disposition home health service (06) | DRG 982 ==
LOC: OR 08:06 → 4SSUR 12:18 → OR 08-05 08:02
PROVIDERS: ADMIT Orthopaedic Surgery; ATTEND Orthopaedic Surgery
PROC: 0SRD0J9 Replacement of Left Knee Joint with Synthetic Substitute, Cemented, Open Approach (ICD-10-PCS; principal; 2022-08-03 10:10)
DX: I95.1 Orthostatic hypotension (principal); D62 Acute posthemorrhagic anemia; J44.9 Chronic obstructive pulmonary disease, unspecified; E03.9 Hypothyroidism, unspecified; M17.12 Unilateral primary osteoarthritis, left knee; T50.2X5A Adverse effect of carbonic-anhydrase inhibitors, benzothiadiazides and other diuretics, initial encounter; T44.6X5A Adverse effect of alpha-adrenoreceptor antagonists, initial encounter; T50.1X5A Adverse effect of loop [high-ceiling] diuretics, initial encounter; T46.4X5A Adverse effect of angiotensin-converting-enzyme inhibitors, initial encounter; Z28.310 Unvaccinated for COVID-19; K21.9 Gastro-esophageal reflux disease without esophagitis; I10 Essential (primary) hypertension; E78.5 Hyperlipidemia, unspecified; F32.A Depression, unspecified; F41.9 Anxiety disorder, unspecified; F17.210 Nicotine dependence, cigarettes, uncomplicated; Z71.6 Tobacco abuse counseling; Z79.890 Hormone replacement therapy; Z79.899 Other long term (current) drug therapy; Z85.46 Personal history of malignant neoplasm of prostate; Z92.3 Personal history of irradiation; Z86.16 Personal history of COVID-19; Z88.8 Allergy status to other drugs, medicaments and biological substances
CPT/HCPCS: 64448; 64999; 76942; 80048; 83735; 85025; 88305; 88311; 93005; 93306; 94640; 94760

== ENCOUNTER 2022-09-07 16:54 | Inpatient (IN) | payer MEDICARE, OTHER ==
[2022-09-07] MEDS ORDERED: SODIUM CHLORIDE 0.9% 1,000 ML IV STA ×2 (16:58)
--- NOTE | 2022-09-07 17:10 | ED ---
Fall HPI - General Chief Complaint: Fall Stated Complaint: Lightheaded / fall w/o injury Time Seen by Provider: 09/07/22 16:54 Source: patient, EMS, RN notes reviewed, old records reviewed Mode of arrival: EMS - History of Present Illness Initial Comments: 72-year-old male who states that it was bathroom he got up was walking down a hallway when he passed out. He denies any injury when he passed out however he was helped up apparently. He states he felt lightheaded before this happened a week. He denies any head neck or back pain at this time he did have surgery on his left knee on August 03. He does not completely service on blood thinners or not. Paramedics were called and they did accomplish orthostatic testing lying flat in a blood pressure 112/66 with heart rate is 91 sitting he was 69/42 with a heart rate of 96 standing blood pressure 70/42 heart rate 103 he was dizzy with this. MD Complaint: fall - Related Data Home Medications Medication Instructions Recorded Confirmed Desvenlafaxine [Pristiq ER] 100 mg PO DAILY 08/02/22 09/07/22 Ibuprofen [Motrin] 800 mg PO Q8H PRN 08/02/22 09/07/22 Levothyroxine Sodium [Synthroid] 150 mcg PO DAILY 08/02/22 09/07/22 Lisinopril-Hctz 20-12.5 mg 1 tab PO DAILY 08/02/22 09/07/22 [Zestoretic 20-12.5] Nortriptyline [Pamelor] 25 mg PO DAILY 08/02/22 09/07/22 Omeprazole 40 mg PO BID 08/02/22 09/07/22 Simvastatin [Zocor] 40 mg PO HS 08/02/22 09/07/22 Glycopyrrolate/Formoterol Fum 2 inhaler INHALATION RT-BID 08/03/22 09/07/22 [Bevespi Aerosphere Inhaler] Docusate [Colace] 100 mg PO BID 09/07/22 09/07/22 Fluticasone Nasal [place] [Flonase 2 spray EA NOSTRIL DAILY 09/07/22 09/07/22 Nasal [place]] HYDROcodone/APAP 7.5-325MG [[place] 1 tab PO Q6HR PRN 09/07/22 09/07/22 7.5] Tamsulosin [Flomax] 0.4 mg PO DAILY 09/07/22 09/07/22 Previous Rx's Medication Instructions Recorded Apixaban [Eliquis] 2.5 mg PO BID #60 tab 08/06/22 Allergies Allergy/AdvReac Type Severity Reaction Status Date / Time glue for incisions Allergy Unknown Swelling Uncoded 09/07/22 18:36 Review of Systems ROS Statement: Those systems with pertinent positive or pertinent negative responses have been documented in the HPI. ROS Other: All systems not noted in ROS Statement are negative. Past Medical History Past Medical History: Cancer, COPD, GERD/Reflux, Hyperlipidemia, Hypertension, Prostate Disorder, Thyroid Disorder Additional Past Medical History / Comment(s): PROSTATE CA 2015 WITH SURGERY & RADIATION TX., STATES UMBILICAL HERNIA, SEE CARDIOLOGY H & P. History of Any Multi-Drug Resistant Organisms: None Reported Past Surgical History: Hernia Repair, Prostate Surgery Additional Past Surgical History / Comment(s): JORGE CATARACTS., INGUINAL HERNIA, RIGHT HIP FX REPAIR WITH HARDWARE. Past Anesthesia/Blood Transfusion Reactions: No Reported Reaction Past Psychological History: Anxiety, Depression Smoking Status: Current every day smoker - Past Family History Father Family Medical History: Cancer Sister(s) Family Medical History: Congestive Heart Failure (CHF) Additional Family Medical History / Comment(s): UNSURE, POSSIBLE CANCER Mother Family Medical History: Congestive Heart Failure (CHF) General Exam - General Exam Comments Initial Comments: This is a well-developed well-nourished awake alert oriented 4 male Limitations: no limitations General appearance: alert, in no apparent distress Head exam: Present: atraumatic, normocephalic, normal inspection Eye exam: Present: normal appearance, PERRL, EOMI. Absent: scleral icterus, conjunctival injection, periorbital swelling ENT exam: Present: mucous membranes dry Neck exam: Present: normal inspection, full ROM, other. Absent: tenderness, meningismus, lymphadenopathy Respiratory exam: Present: normal lung sounds bilaterally. Absent: respiratory distress, wheezes, rales, rhonchi, stridor Cardiovascular Exam: Present: regular rate, normal rhythm, normal heart sounds. Absent: systolic murmur, diastolic murmur, rubs, gallop, clicks GI/Abdominal exam: Present: soft, normal bowel sounds. Absent: distended, tenderness, guarding, rebound, rigid Extremities exam: Present: full ROM, normal capillary refill, other (MH left knee post surgery the wound appears be healing well no evidence of dehiscence mild edema postop. No erythema). Absent: tenderness, pedal edema, joint swelling, calf tenderness Back exam: Present: normal inspection Neurological exam: Present: alert, oriented X3, CN II-XII intact Psychiatric exam: Present: normal affect, normal mood Skin exam: Present: warm, dry, intact, normal color. Absent: rash Course Vital Signs 09/07/22 09/07/22 16:56 19:08 Temperature 98.1 F Pulse Rate 58 L Respiratory 18 18 Rate Blood Pressure 118/72 Blood Pressure 115/67 [Right Arm Sitting] Blood Pressure 98/64 [Right Arm Standing] Blood Pressure 115/64 [Right Arm Supine] O2 Sat by Pulse 94 L 84 L Oximetry - Reevaluation(s) Reevaluation #1: 09/07/22 22:01 Evaluation the patient after hydration he does still somewhat improved the. Blood pressure still less 100 systolic over. Medical Decision Making - Medical Decision Making I did discuss findings with the patient he does demonstrate evidence of a syncopal episode of unclear etiology to orthostatic considerations are entertained as well as patient being dehydrated clinically. He did have elevated d-dimer with negative CT for PE patient will be admitted at did discuss case with Juvencio Steinberg covering for Dr. Baker.Was pt. sent in by a medical professional or institution (, PA, QUALITY ASSURANCE REPRESENTATIVE, urgent care, hospital, or snf...) When possible be specific @ -[No] Did you speak to anyone other than the patient for history (EMS, parent, family, police, friend...)? What history was obtained from this source @ -[EMS] Did you review nursing and triage notes (agree or disagree)? Why? @ -[I reviewed and agree with nursing and triage notes] Were old charts reviewed (outside hosp., previous admission, EMS record, old EKG, old radiological studies, urgent care reports/EKG's, snf records)? Report findings @ -[ old charts were reviewed] Differential Diagnosis (chest pain, altered mental status, abdominal pain women, abdominal pain men, vaginal bleeding, weakness, fever, dyspnea, syncope, headache, dizziness, GI bleed, back pain, seizure, CVA, palpatations, mental health)? @ -[not applicable] EKG interpreted by me (3pts min.). @ -[As above] X-rays interpreted by me (1pt min.). @ -As above] CT interpreted by me (1pt min.). @ -[Yes as above] U/S interpreted by me (1pt. min.). @ -[None done] What testing was considered but not performed or refused? (CT, X-rays, U/S, labs)? Why? @ -[None] What meds were considered but not given or refused? Why? @ -[None] Did you discuss the management of the patient with other professionals (professionals i.e. DrSilverio, PA, QUALITY ASSURANCE REPRESENTATIVE, lab, RT, psych nurse, social services director, jowl trimmer, teacher, contracts officer, registered nurse hh case manager)? Give summary @ -[No] Was smoking cessation discussed for >3mins.? @ -[No] Was critical care preformed (if so, how long)? @ -[31 minutes] Were there social determinants of health that impacted care today? How? (Homelessness, low income, unemployed, alcoholism, drug addiction, transpor tation, low edu. Level, literacy, decrease access to med. care, shelter, rehab)? @ -[No] Was there de-escalation of care discussed even if they declined (Discuss DNR or withdrawal of care, Hospice)? DNR status @ -[No] What co-morbidities impacted this encounter? (DM, HTN, Smoking, COPD, CAD, Cancer, CVA, ARF, Chemo, Hep., AIDS, mental health diagnosis, sleep apnea, morbid obesity)? @ -[None] Was patient admitted / discharged? Hospital course, mention meds given and route, prescriptions, significant lab abnormalities, going to OR and other pertinent info. @ -[hospital course] admitted Undiagnosed new problem with uncertain prognosis? @ -[No] Drug Therapy requiring intensive monitoring for toxicity (Heparin, Nitro, Insulin, Cardizem)? @ -[No] Were any procedures done? @ -[No] Diagnosis/symptom? @ -[default] Acute, or Chronic, or Acute on Chronic? @ -[Acute] Uncomplicated (without systemic symptoms) or Complicated (systemic symptoms)? @ -[default] Side effects of treatment? @ -[No] Exacerbation, Progression, or Severe Exacerbation? @ -[No] Poses a threat to life or bodily function? How? (Chest pain, [place], OR, pneumonia, PE, COPD, DKA, ARF, appy, cholecystitis, CVA, Diverticulitis, Homicidal, Suicidal, threat to staff... and all critical care pts) @ -[Yes syncope] - Lab Data Result diagrams: 09/07/22 17:24 09/07/22 17:24 Lab Results 09/07/22 09/07/22 09/07/22 Range/Units 17:24 17:24 17:24 WBC 10.3 (3.8-10.6) k/uL RBC 3.78 L (4.30-5.90) m/uL Hgb 11.3 L (13.0-17.5) gm/dL Hct 32.8 L (39.0-53.0) % MCV 86.8 (80.0-100.0) fL MCH 30.0 (25.0-35.0) pg MCHC 34.5 (31.0-37.0) g/dL RDW 14.5 (11.5-15.5) % Plt Count 229 (150-450) k/uL MPV 7.6 Neutrophils % 87 % Lymphocytes % 7 % Monocytes % 5 % Eosinophils % 1 % Basophils % 0 % Neutrophils # 8.9 H (1.3-7.7) k/uL Lymphocytes # 0.7 L (1.0-4.8) k/uL Monocytes # 0.5 (0-1.0) k/uL Eosinophils # 0.1 (0-0.7) k/uL Basophils # 0.0 (0-0.2) k/uL PT 10.1 (9.0-12.0) sec INR 0.9 (<1.2) APTT 25.3 (22.0-30.0) sec D-Dimer 1.13 H (<0.60) mg/L FEU Sodium 136 L (137-145) mmol/L Potassium 3.4 L (3.5-5.1) mmol/L Chloride 100 (98-107) mmol/L Carbon Dioxide 29 (22-30) mmol/L Anion Gap 7 mmol/L BUN 21 H (9-20) mg/dL Creatinine 0.75 (0.66-1.25) mg/dL Est GFR (CKD-EPI)AfAm >90 (>60 ml/min/1.73 sqM) Est GFR (CKD-EPI)NonAf >90 (>60 ml/min/1.73 sqM) Glucose 97 (74-99) mg/dL Calcium 8.8 (8.4-10.2) mg/dL Magnesium 1.8 (1.6-2.3) mg/dL Total Bilirubin 0.4 (0.2-1.3) mg/dL AST 18 (17-59) U/L ALT 14 (4-49) U/L Alkaline Phosphatase 86 (38-126) U/L Troponin I (0.000-0.034) ng/mL Total Protein 6.8 (6.3-8.2) g/dL Albumin 3.9 (3.5-5.0) g/dL 09/07/22 Range/Units 17:24 WBC (3.8-10.6) k/uL RBC (4.30-5.90) m/uL Hgb (13.0-17.5) gm/dL Hct (39.0-53.0) % MCV (80.0-100.0) fL MCH (25.0-35.0) pg MCHC (31.0-37.0) g/dL RDW (11.5-15.5) % Plt Count (150-450) k/uL MPV Neutrophils % % Lymphocytes % % Monocytes % % Eosinophils % % Basophils % % Neutrophils # (1.3-7.7) k/uL Lymphocytes # (1.0-4.8) k/uL Monocytes # (0-1.0) k/uL Eosinophils # (0-0.7) k/uL Basophils # (0-0.2) k/uL PT (9.0-12.0) sec INR (<1.2) APTT (22.0-30.0) sec D-Dimer (<0.60) mg/L FEU Sodium (137-145) mmol/L Potassium (3.5-5.1) mmol/L Chloride (98-107) mmol/L Carbon Dioxide (22-30) mmol/L Anion Gap mmol/L BUN (9-20) mg/dL Creatinine (0.66-1.25) mg/dL Est GFR (CKD-EPI)AfAm (>60 ml/min/1.73 sqM) Est GFR (CKD-EPI)NonAf (>60 ml/min/1.73 sqM) Glucose (74-99) mg/dL Calcium (8.4-10.2) mg/dL Magnesium (1.6-2.3) mg/dL Total Bilirubin (0.2-1.3) mg/dL AST (17-59) U/L ALT (4-49) U/L Alkaline Phosphatase (38-126) U/L Troponin I <0.012 (0.000-0.034) ng/mL Total Protein (6.3-8.2) g/dL Albumin (3.5-5.0) g/dL - EKG Data -: EKG Interpreted by Me EKG Comments: EKG interpreted by me normal sinus rhythm 86. Interval 164 incomplete right bundle-branch block pattern evidence of old septal changes - Radiology Data Interpreted by me: Imaging interpreted by me no acute process. CT negative for acute findings no evidence of any pulmonary emboli Critical Care Time Critical Care Time: Yes Total Critical Care Time: 31 Disposition Clinical Impression: Syncope, Dehydration, Hypotensive episode, Elevated d-dimer, Hypokalemia Disposition: ADMITTED IP TO THIS [facility] Condition: Stable Referrals: None,Stated [Primary Care Provider] - 1-2 days Decision Date: 09/07/22 Decision Time: 21:00
[2022-09-07 17:40] LABS: Basophils % (A) 0 %; Eosinophils # (A) 0.1 k/uL (0-0.7); Eosinophils % (A) 1 %; HCT 32.8 % (39.0-53.0); HGB 11.3 gm/dL (13.0-17.5); Lymphocytes # (A) 0.7 k/uL (1.0-4.8); Lymphocytes % (A) 7 %; MCHC 34.5 g/dL (31.0-37.0); MCV 86.8 fL (80.0-100.0); Mean Platelet Volume 7.6; Monocytes # (A) 0.5 k/uL (0-1.0); Monocytes % (A) 5 %; Neutrophils # (A) 8.9 k/uL (1.3-7.7); Neutrophils % (A) 87 %; Platelet Count 229 k/uL (150-450); RBC 3.78 m/uL (4.30-5.90); RDW 14.5 % (11.5-15.5); WBC 10.3 k/uL (3.8-10.6)
--- NOTE | 2022-09-07 17:40 | XR ---
EXAMINATION TYPE: XR chest 2V DATE OF EXAM: 09/07/2022 COMPARISON: 02/22/2022 HISTORY: Shortness of breath TECHNIQUE: Frontal and lateral views of the chest are obtained. FINDINGS: Scattered senescent parenchymal changes noted. Hyperinflation compatible with COPD. No evidence for infiltrate. No evidence for atelectasis. Heart size is stable. Mediastinal structures are stable and grossly unremarkable. No evidence for hilar prominence. Degenerative changes dorsal spine. IMPRESSION: 1. No evidence for acute pulmonary disease.
[2022-09-07 17:53] LABS: ALT 14 U/L (4-49); AST 18 U/L (17-59); African American GFR (CKD) >90 (>60 ml/min/1.73 sqM); Albumin 3.9 g/dL (3.5-5.0); Alkaline Phosphatase 86 U/L (38-126); Anion Gap 7 mmol/L; Blood Urea Nitrogen 21 mg/dL (9-20); Calcium 8.8 mg/dL (8.4-10.2); Carbon Dioxide 29 mmol/L (22-30); Chloride 100 mmol/L (98-107); Glucose 97 mg/dL (74-99); Magnesium 1.8 mg/dL (1.6-2.3); Non-African American GFR(CKD) >90 (>60 ml/min/1.73 sqM); Potassium 3.4 mmol/L (3.5-5.1); Sodium 136 mmol/L (137-145); Total Bilirubin 0.4 mg/dL (0.2-1.3); Total Protein 6.8 g/dL (6.3-8.2)
[2022-09-07 18:34] LABS: INR 0.9 (<1.2); Partial Thromboplastin Time 25.3 sec (22.0-30.0); Prothrombin Time 10.1 sec (9.0-12.0)
--- NOTE | 2022-09-07 20:43 | CT ---
EXAMINATION TYPE: CT angio chest DATE OF EXAM: 09/07/2022 COMPARISON: None HISTORY: PE suspected CT DLP: 293 mGycm CONTRAST: CT chest with contrast and 3D reconstruction with MIP imaging is performed with IV Contrast, patient injected with 100cc mL of Isovue 370. Contrast-enhanced CT of the chest was performed through the course of the pulmonary arteries with fran g and mediastinal window settings submitted. 3D reconstruction with MIP imaging was also performed. PULMONARY ARTERIES: The pulmonary arteries and their major tributaries are patent. I do not see griselda dence for sizable filling defect to suggest pulmonary embolic process. LUNGS: Centrilobular and paraseptal emphysema noted. The lungs are clear and free of infiltrate. No e vidence for atelectasis. No pulmonary nodule or mass is detected. No pleural effusion. MEDIASTINUM: Thoracic aorta is of normal caliber,however, evaluation is limited given timing of the contrast bolus. If there is concern for thoracic aortic pathology consider JUAN CARLOS. Correlate clinicall y . The heart is not enlarged. No evidence for mediastinal mass. No mediastinal lymph nodes greater than 1cm. HILAR STRUCTURES: No evidence for mass. No hilar lymph nodes greater than 1 cm. UPPER ABDOMEN: No significant abnormality is seen. IMPRESSION: 1. No evidence for Pulmonary embolism at this time.
[2022-09-07] MEDS ORDERED: ACETAMINOPHEN TAB 325 MG TAB PO PRN (22:06)
[2022-09-07] MEDS ORDERED: POTASSIUM CHLORIDE 20 MEQ in WATER FOR INJECTION 1 100ML.BAG IVPB STA (22:06)
[2022-09-07] MEDS ORDERED: NALOXONE 0.4 MG/ML 1 ML VIAL IV PRN (22:06)
[2022-09-07] MEDS ORDERED: HYDROcodone/APAP 7.5-325MG 1 EACH TAB PO PRN (22:08)
[2022-09-07] MEDS ORDERED: IBUPROFEN 800 MG TAB PO PRN (22:08)
[2022-09-08] MEDS ORDERED: LEVOTHYROXINE 75 MCG TAB PO SCH (06:30)
[2022-09-08] MEDS: SODIUM CHLORIDE 0.9% 1,000 ML IV SCH ×2 (06:40→07:25)
[2022-09-08 07:41] LABS: Appearance,Urine Clear (Clear); Bilirubin,Urine Negative (Negative); Blood,Urine Negative (Negative); Color,Urine Light Yellow; Glucose,Urine (UA) Negative (Negative); Ketones,Urine Negative (Negative); Leukocyte Esterase,Urine Negative (Negative); Nitrite,Urine Negative (Negative); PH, Urine 6.5 (5.0-8.0); Protein,Urine Negative (Negative); Specific Gravity,Urine 1.028 (1.001-1.035); Urobilinogen,Urine <2.0 mg/dL (<2.0)
[2022-09-08] MEDS: IPRATROPIUM 0.5 MG/2.5 ML NEBU INHALATION SCH ×3 (07:54→15:08)
[2022-09-08] MEDS ORDERED: FORMOTEROL FUMARATE 20 MCG/2 ML NEBU INHALATION SCH (08:00)
[2022-09-08] MEDS ORDERED: TAMSULOSIN 0.4 MG CAP.ER.24H PO SCH (09:00)
[2022-09-08] MEDS ORDERED: PANTOPRAZOLE 40 MG TABLET PO SCH (09:00)
[2022-09-08] MEDS ORDERED: APIXABAN 2.5 MG TABLET PO SCH (09:00)
[2022-09-08] MEDS ORDERED: NORTRIPTYLINE 25 MG CAP PO SCH (09:00)
[2022-09-08] MEDS ORDERED: DESVENLAFAXINE SUCCINATE 50 MG TAB.ER.24H PO SCH (09:00)
[2022-09-08] MEDS ORDERED: FLUTICASONE 50MCG/SPRAY NASAL 16GM EA NOSTRIL SCH (09:00)
[2022-09-08] MEDS ORDERED: DOCUSATE 100 MG CAP PO SCH (09:00)
[2022-09-08 11:45] VITALS: BP 144/82; PULSE 88; RESP 18; TEMP 98.8
[2022-09-08] MEDS ORDERED: POTASSIUM CHLORIDE ER 20 MEQ TAB.ER PO STA (13:26)
--- NOTE | 2022-09-08 13:35 | P.HPIM ---
History of Present Illness Patient is a pleasant 72-year-old male had a syncopal episode while having a bowel movement. Patient is alert oriented 3. Patient felt lightheaded before before his syncope patient didn't have any seizure-like activity. Patient had positive orthostatic vitals and blood pressure was low on arrival to ER. Patient doesn't have any history of atrial fibrillation, a normal EKG here patient had an echocardiogram ordered a month ago which did not show any valvular abnormalities. Patient had mildly elevated d-dimer because of which patient underwent a CT angios the chest which did not show any PE. Patient is clinically doing well received IV fluids overnight patient is also on the lisinopril hydrochlorothiazide. Patient overall appears to be weak and the family is trying to send him to rehabilitation REVIEW OF SYSTEMS: CONSTITUTIONAL: No fever, no malaise, no fatigue. HEENT: No recent visual problems or hearing problems. Denied any sore throat. CARDIOVASCULAR: No chest pain, orthopnea, PND, no palpitations. PULMONARY: No shortness of breath, no cough, no hemoptysis. GASTROINTESTINAL: No diarrhea, no nausea, no vomiting, no abdominal pain. NEUROLOGICAL: No headaches, no weakness, no numbness. HEMATOLOGICAL: Denies any bleeding or petechiae. GENITOURINARY: Denies any burning micturition, frequency, or urgency. MUSCULOSKELETAL/RHEUMATOLOGICAL: Denies any joint pain, swelling, or any muscle pain. ENDOCRINE: Denies any polyuria or polydipsia. The rest of the 14-point review of systems is negative. PHYSICAL EXAMINATION: GENERAL: The patient is alert and oriented x3, not in any acute distress. Well developed, well nourished. HEENT: Pupils are round and equally reacting to light. EOMI. No scleral icterus. No conjunctival pallor. Normocephalic, atraumatic. No pharyngeal erythema. No thyromegaly. CARDIOVASCULAR: S1 and S2 present. No murmurs, rubs, or gallops. PULMONARY: Chest is clear to auscultation, no wheezing or crackles. ABDOMEN: Soft, nontender, nondistended, normoactive bowel sounds. No palpable organomegaly. MUSCULOSKELETAL: No joint swelling or deformity. EXTREMITIES: No cyanosis, clubbing, or pedal edema. NEUROLOGICAL: Gross neurological examination did not reveal any focal deficits. Does have generalized weakness SKIN: No rashes. Assessment and plan -Syncope: Multifactorial, secondary to hypotension, orthostatic hypotension secondary to hydrochlorothiazide and other hand and evidences are being held at this time with improvement in blood sugars pressure. Patient received IV fluids. There may be a competent of vasovagal event. No further workup is needed at this time, depending on physical therapy recommendations patient can be discharged most probably today. -Generalized weakness is related muscle atrophy: Physical therapy occupational therapy evaluation -hypertension discontinue per existing and a some medications because of hypotension, patient will be started just on a low-dose of lisinopril. -COPD without any acute acceleration and plan-hyperlipidemia next and have an hypertension and Abdomen benign prostatic hypertrophy -Hypothyroidism next (Continued nicotine use: Counseling was provided DVT prophylaxis: Subcutaneous heparin Past Medical History Past Medical History: Cancer, COPD, GERD/Reflux, Hyperlipidemia, Hypertension, Prostate Disorder, Thyroid Disorder Additional Past Medical History / Comment(s): PROSTATE CA 2015 WITH SURGERY & RADIATION TX., STATES UMBILICAL HERNIA, SEE CARDIOLOGY H & P. History of Any Multi-Drug Resistant Organisms: None Reported Past Surgical History: Hernia Repair, Prostate Surgery Additional Past Surgical History / Comment(s): JORGE CATARACTS., INGUINAL HERNIA, RIGHT HIP FX REPAIR WITH HARDWARE, left knee cap replaced Past Anesthesia/Blood Transfusion Reactions: No Reported Reaction Past Psychological History: Anxiety, Depression Smoking Status: Current every day smoker Past Alcohol Use History: None Reported Additional Past Alcohol Use History / Comment(s): SMOKING SINCE 18, < 1/2 PPD Past Drug Use History: None Reported - Past Family History Father Family Medical History: Cancer Sister(s) Family Medical History: Congestive Heart Failure (CHF) Additional Family Medical History / Comment(s): UNSURE, POSSIBLE CANCER Mother Family Medical History: Congestive Heart Failure (CHF) Medications and Allergies Home Medications Medication Instructions Recorded Confirmed Type Desvenlafaxine [Pristiq ER] 100 mg PO DAILY 08/02/22 09/07/22 History Ibuprofen [Motrin] 800 mg PO Q8H PRN 08/02/22 09/07/22 History Levothyroxine Sodium [Synthroid] 150 mcg PO DAILY 08/02/22 09/07/22 History Lisinopril-Hctz 20-12.5 mg 1 tab PO DAILY 08/02/22 09/07/22 History [Zestoretic 20-12.5] Nortriptyline [Pamelor] 25 mg PO DAILY 08/02/22 09/07/22 History Omeprazole 40 mg PO BID 08/02/22 09/07/22 History Simvastatin [Zocor] 40 mg PO HS 08/02/22 09/07/22 History Docusate [Colace] 100 mg PO BID 09/07/22 09/07/22 History Fluticasone Nasal [place] [Flonase 2 spray EA NOSTRIL DAILY 09/07/22 09/07/22 History Nasal [place]] HYDROcodone/APAP 7.5-325MG [[place] 1 tab PO Q6HR PRN 09/07/22 09/07/22 History 7.5] Tamsulosin [Flomax] 0.4 mg PO DAILY 09/07/22 09/07/22 History Allergies Allergy/AdvReac Type Severity Reaction Status Date / Time glue for incisions Allergy Unknown Swelling Uncoded 09/07/22 18:36 Physical Exam Vitals: Vital Signs Temp Pulse Pulse Resp BP BP BP 09/08/22 11:35 82 09/08/22 11:24 86 09/08/22 11:12 98.8 F 88 18 09/08/22 10:38 98.2 F 89 20 142/81 09/08/22 09:00 18 136/73 09/08/22 08:05 78 16 09/08/22 07:56 78 16 09/08/22 07:25 98.1 F 90 20 137/79 09/08/22 06:41 85 15 153/77 09/07/22 19:08 18 115/67 98/64 09/07/22 16:56 98.1 F 58 L 18 118/72 BP Pulse Ox 09/08/22 11:35 09/08/22 11:24 09/08/22 11:12 144/82 97 09/08/22 10:38 98 09/08/22 09:00 09/08/22 08:05 09/08/22 07:56 98 09/08/22 07:25 97 09/08/22 06:41 99 09/07/22 19:08 115/64 84 L 09/07/22 16:56 94 L Intake and Output 09/07/22 09/08/22 09/08/22 22:59 06:59 14:59 Other: # Voids 1 # Bowel Movements 1 Weight 74.843 kg 74.843 kg Results CBC & Chem 7: 09/07/22 17:24 09/07/22 17:24 Labs: Abnormal Lab Results - Last 24 Hours (Table) 09/07/22 09/07/22 09/07/22 Range/Units 17:24 17:24 17:24 RBC 3.78 L (4.30-5.90) m/uL Hgb 11.3 L (13.0-17.5) gm/dL Hct 32.8 L (39.0-53.0) % Neutrophils # 8.9 H (1.3-7.7) k/uL Lymphocytes # 0.7 L (1.0-4.8) k/uL D-Dimer 1.13 H (<0.60) mg/L FEU Sodium 136 L (137-145) mmol/L Potassium 3.4 L (3.5-5.1) mmol/L BUN 21 H (9-20) mg/dL Thrombosis Risk Factor Assmnt - Choose All That Apply Any of the Below Risk Factors Present?: Yes Each Factor Represents 1 point: Abnormal pulmonary function (COPD) Other Risk Factors: Yes Each Risk Factor Represents 2 Points: Age 61-74 years Thrombosis Risk Factor Assessment Total Risk Factor Score: 3 Thrombosis Risk Factor Assessment Level: Moderate Risk
--- NOTE | 2022-09-08 13:40 | XR ---
EXAMINATION TYPE: XR knee limited LT DATE OF EXAM: 09/08/2022 CLINICAL HISTORY: Right knee pain and arthritis status post total knee replacement. TECHNIQUE: Portable AP and crosstable lateral views of the left knee are obtained immediately postop eratively. COMPARISON: None FINDINGS: Metallic hardware from total left knee arthroplasty is seen and appears satisfactory in al ignment and position. There is evidence of recent surgery with diffuse subcutaneous gas , vertical s kin riri, and percutaneous suprapatellar surgical drain noted. IMPRESSION: METALLIC HARDWARE FROM TOTAL left KNEE ARTHROPLASTY IS SATISFACTORY IN ALIGNMENT.
--- NOTE | 2022-09-08 14:56 | P.DS ---
Providers Date of admission: 09/07/22 22:09 Attending physician: Ewa Baker Primary care physician: Stated None Hospital Course: Please refer to HPI for further details of hospitalization. Patient is clinically doing well will be discharged today. Patient had increased swelling in the left knee surgical knee, obtain x-ray to rule out any issues with the new prosthetic joint. The x-rays negative for any fracture or any malalignment patient is being discharged today was evaluated by physical therapy and occupational therapy did not recommend any subacute rehabilitation. Patient Condition at Discharge: Stable Plan - Discharge Summary Discharge Rx Participant: Yes New Discharge Prescriptions: New lisinopriL [Zestril] 10 mg PO DAILY #30 tab Discontinued Lisinopril-Hctz 20-12.5 mg [Zestoretic 20-12.5] 1 tab PO DAILY Apixaban [Eliquis] 2.5 mg PO BID #60 tab Glycopyrrolate/Formoterol Fum [Bevespi Aerosphere Inhaler] 2 inhaler INHALATION RT-BID No Action Omeprazole 40 mg PO BID Desvenlafaxine [Pristiq ER] 100 mg PO DAILY Simvastatin [Zocor] 40 mg PO HS Levothyroxine Sodium [Synthroid] 150 mcg PO DAILY HYDROcodone/APAP 7.5-325MG [[place] 7.5] 1 tab PO Q6HR PRN PRN Reason: Pain Docusate [Colace] 100 mg PO BID Nortriptyline [Pamelor] 25 mg PO DAILY Ibuprofen [Motrin] 800 mg PO Q8H PRN PRN Reason: Pain Tamsulosin [Flomax] 0.4 mg PO DAILY Fluticasone Nasal [place] [Flonase Nasal [place]] 2 spray EA NOSTRIL DAILY Discharge Medication List Desvenlafaxine [Pristiq ER] 100 mg PO DAILY 08/02/22 [History] Ibuprofen [Motrin] 800 mg PO Q8H PRN 08/02/22 [History] Levothyroxine Sodium [Synthroid] 150 mcg PO DAILY 08/02/22 [History] Nortriptyline [Pamelor] 25 mg PO DAILY 08/02/22 [History] Omeprazole 40 mg PO BID 08/02/22 [History] Simvastatin [Zocor] 40 mg PO HS 08/02/22 [History] Docusate [Colace] 100 mg PO BID 09/07/22 [History] Fluticasone Nasal [place] [Flonase Nasal [place]] 2 spray EA NOSTRIL DAILY 09/07/22 [History] HYDROcodone/APAP 7.5-325MG [[place] 7.5] 1 tab PO Q6HR PRN 09/07/22 [History] Tamsulosin [Flomax] 0.4 mg PO DAILY 09/07/22 [History] lisinopriL [Zestril] 10 mg PO DAILY #30 tab 09/08/22 [Rx] Follow up Appointment(s)/Referral(s): Sherry Castro DO [REFERRING] - 1 Week Discharge Disposition: HOME SELF-CARE
[2022-09-08] MEDS ORDERED: HEPARIN SODIUM,PORCINE/PF 5,000 UNIT/0.5 ML SYRINGE SQ SCH (16:00)
[2022-09-08] MEDS ORDERED: ATORVASTATIN 20 MG TAB PO SCH (21:00)
== END 2022-09-08 18:40 | disposition home or self-care (01) | DRG 312 ==
LOC: EC 16:54 → 5NMEDONC 22:09
PROVIDERS: ADMIT Hospitalist; ATTEND Hospitalist
DX: I95.1 Orthostatic hypotension (principal); E03.9 Hypothyroidism, unspecified; J44.9 Chronic obstructive pulmonary disease, unspecified; Z28.310 Unvaccinated for COVID-19; Z66 Do not resuscitate; T50.2X5A Adverse effect of carbonic-anhydrase inhibitors, benzothiadiazides and other diuretics, initial encounter; M62.50 Muscle wasting and atrophy, not elsewhere classified, unspecified site; E87.6 Hypokalemia; E86.0 Dehydration; I10 Essential (primary) hypertension; N40.0 Benign prostatic hyperplasia without lower urinary tract symptoms; E78.5 Hyperlipidemia, unspecified; F32.A Depression, unspecified; F41.9 Anxiety disorder, unspecified; K21.9 Gastro-esophageal reflux disease without esophagitis; F17.210 Nicotine dependence, cigarettes, uncomplicated; Z79.01 Long term (current) use of anticoagulants; Z79.890 Hormone replacement therapy; Z79.899 Other long term (current) drug therapy; Z71.6 Tobacco abuse counseling; Z85.46 Personal history of malignant neoplasm of prostate; Z92.3 Personal history of irradiation
CPT/HCPCS: 36415; 71046; 71275; 80053; 81003; 83735; 84484; 85025; 85379; 85610; 85730; 93005; 94640; 94760; 96361; 96365; 96366; 99291